=== PATIENT | male | born 1955 | race Two or more races ===

== ENCOUNTER 2017-11-02 13:36 | Emergency (ER) | payer MEDICARE, OTHER ==
[~2017-11-02] VITALS: Ht 177.8 cm; Wt 90.0 kg
[~2017-11-02 13:36] MED LIST: DICY10CA88 PO; LACT10SO PO; METF500T PO; METO5TAB98 PO; PANT-47 PO
[2017-11-02] MEDS ORDERED: morphine 4 MG/ML inj SYRINge IV ONE (14:15)
[2017-11-02] MEDS ORDERED: ondansetron/PF 4mg/2ml inj IV ONE (14:15)
[2017-11-02] MEDS ORDERED: normal saline 1000ML IV soln IVB ONE (14:15)
[2017-11-02 14:35] VITALS: BP 131/76
[2017-11-02 14:39] LABS: BASOPHILS # (AUTO) 0.1 X10'3 (0-0.2); BASOPHILS % (AUTO) 0.6 % (0-1); EOSINOPHILS # (AUTO) 0.2 X10'3 (0-0.9); EOSINOPHILS % (AUTO) 1.5 % (0-6); HEMATOCRIT 33.2 % (42.0-52.0); HEMOGLOBIN 11.6 g/dl (14.0-17.9); LYMPHOCYTES # (AUTO) 1.5 X10'3 (1.1-4.8); LYMPHOCYTES % (AUTO) 14.6 % (21-51); MEAN CORPUSCULAR HEMOGLOBIN 32.8 PG (27.0-31.0); MEAN CORPUSCULAR HGB CONC 34.9 % (33.0-36.5); MEAN CORPUSCULAR VOLUME 94.1 FL (78-98); MEAN PLATELET VOLUME 8.4 FL (7.4-10.4); MONOCYTES # (AUTO) 0.6 X10'3 (0-0.9); NEUTROPHILS # (AUTO) 8.1 X10'3 (1.8-7.7); NEUTROPHILS % (AUTO) 77.3 % (42-75); PLATELET COUNT 248 X10'3 (140-440); RED BLOOD COUNT 3.53 X10'6 (4.70-6.10); RED CELL DISTRIBUTION WIDTH 13.4 % (11.5-14.5); WHITE BLOOD COUNT 10.5 X10'3 (4.5-11.0)
[2017-11-02 14:53] LABS: ALANINE AMINOTRANSFERASE 20 U/L (12-78); ALBUMIN 3.9 G/DL (3.4-5.0); ALKALINE PHOSPHATASE 59 IU/L (46-116); AMYLASE 47 U/L (25-115); ANION GAP 15 (8-16); ASPARTATE AMINO TRANSFERASE 10 U/L (10-37); BILIRUBIN,TOTAL 0.3 MG/DL (0.1-1.0); BLOOD UREA NITROGEN 30 MG/DL (7-18); CALCIUM 9.4 MG/DL (8.5-10.1); CHLORIDE 101 MMOL/L (99-107); CREATININE 1.58 MG/DL (0.60-1.10); GLUCOSE 130 MG/DL (70-104); LIPASE 279 U/L (73-393); POTASSIUM 4.1 MMOL/L (3.5-5.1); SODIUM 139 MMOL/L (135-145); TOTAL CARBON DIOXIDE 22.8 MMOL/L (24-32); TOTAL PROTEIN 7.8 G/DL (6.4-8.2); eGFR 45 ML/MIN
== END 2017-11-02 15:34 | disposition home or self-care (01) ==
LOC: ER 13:37
DX: R10.31 Right lower quadrant pain (principal); R10.32 Left lower quadrant pain; R11.2 Nausea with vomiting, unspecified; I10 Essential (primary) hypertension; E11.9 Type 2 diabetes mellitus without complications; F12.10 Cannabis abuse, uncomplicated; Z79.84 Long term (current) use of oral hypoglycemic drugs
CPT/HCPCS: 36415; 80053; 82150; 83690; 85025; 96361; 96374; 96375; 99285; J2270; J2405; J7030

== ENCOUNTER 2017-11-08 15:55 | Emergency (ER) | payer MEDICARE, OTHER ==
[~2017-11-08] VITALS: Ht 180.3 cm; Wt 97.3 kg
[2017-11-08] MEDS ORDERED: normal saline 1000ML IV soln IVB ONE ×2 (16:10→17:00)
[2017-11-08] MEDS ORDERED: fentaNYL/PF 50MCG/1 ML 2ML syringe IV ONE ×2 (16:10→17:00)
[2017-11-08] MEDS ORDERED: metoclopramide 5 mg/ml inj IV ONE (16:10)
[2017-11-08 16:34] LABS: BASOPHILS % (AUTO) 0.3 % (0-1); EOSINOPHILS # (AUTO) 0.2 X10'3 (0-0.9); EOSINOPHILS % (AUTO) 1.6 % (0-6); HEMATOCRIT 33.6 % (42.0-52.0); HEMOGLOBIN 11.7 g/dl (14.0-17.9); LYMPHOCYTES # (AUTO) 1.7 X10'3 (1.1-4.8); LYMPHOCYTES % (AUTO) 16.1 % (21-51); MEAN CORPUSCULAR HEMOGLOBIN 32.6 PG (27.0-31.0); MEAN CORPUSCULAR HGB CONC 34.8 % (33.0-36.5); MEAN CORPUSCULAR VOLUME 93.8 FL (78-98); MEAN PLATELET VOLUME 8.8 FL (7.4-10.4); MONOCYTES # (AUTO) 0.7 X10'3 (0-0.9); MONOCYTES % (AUTO) 7.1 % (2-12); NEUTROPHILS # (AUTO) 7.8 X10'3 (1.8-7.7); NEUTROPHILS % (AUTO) 74.9 % (42-75); PLATELET COUNT 251 X10'3 (140-440); RED BLOOD COUNT 3.58 X10'6 (4.70-6.10); RED CELL DISTRIBUTION WIDTH 13.3 % (11.5-14.5); WHITE BLOOD COUNT 10.4 X10'3 (4.5-11.0)
[2017-11-08 16:49] LABS: ALANINE AMINOTRANSFERASE 18 U/L (12-78); ALBUMIN 4.4 G/DL (3.4-5.0); ALBUMIN/GLOBULIN RATIO 1.2 (1.1-1.5); ALKALINE PHOSPHATASE 56 IU/L (46-116); ANION GAP 21 (8-16); ASPARTATE AMINO TRANSFERASE 8 U/L (10-37); BILIRUBIN,TOTAL 0.4 MG/DL (0.1-1.0); BLOOD UREA NITROGEN 35 MG/DL (7-18); BUN/CREATININE RATIO 19.3 (5.4-32.0); CALCIUM 9.8 MG/DL (8.5-10.1); CHLORIDE 102 MMOL/L (99-107); CREATININE 1.81 MG/DL (0.60-1.10); GLUCOSE 152 MG/DL (70-104); LIPASE 127 U/L (73-393); POTASSIUM 3.6 MMOL/L (3.5-5.1); SODIUM 142 MMOL/L (135-145); TOTAL CARBON DIOXIDE 19.1 MMOL/L (24-32); eGFR 38 ML/MIN
[2017-11-08 17:57] LABS: CLARITY,URINE Clear (Clear); COLOR,URINE Yellow (Yellow); GLUCOSE, URINE Negative (Neg); KETONES,URINE 15 mg/dl (Neg); LEUKOCYTE ESTERASE ,URINE Negative (Neg); NITRITES, URINE Negative (Neg); OCCULT BLOOD,URINE Negative (Neg); PROTEIN,URINE 30 mg/dl (Neg); UA COLLECTION TYPE URINAL
[2017-11-08 18:05] LABS: BACTERIA,URINE FEW /HPF (Neg); CAL OXALATE CRYSTALS 2+ /HPF (NEGATIVE); MUCUS STRANDS FEW /LPF (Neg); RBC,URINE NONE SEEN /HPF (0-2); SQUAMOUS EPITHELIAL CELL,UR FEW /LPF (FEW); WBC,URINE 0-4 /HPF (0-4)
[2017-11-08 18:37] VITALS: BP 121/58
[2017-11-08] MEDS ORDERED: chlorproMAZINE 25mg/ml inj. IM ONE (18:45)
[2017-11-08] MEDS ORDERED: CIPR-230 PO (19:21)
[2017-11-08] MEDS ORDERED: METR500T4 PO (19:21)
== END 2017-11-08 19:42 | disposition home or self-care (01) ==
LOC: ER 15:56
DX: K31.84 Gastroparesis (principal); K52.9 Noninfective gastroenteritis and colitis, unspecified; I10 Essential (primary) hypertension; E11.9 Type 2 diabetes mellitus without complications; F12.10 Cannabis abuse, uncomplicated; Z79.84 Long term (current) use of oral hypoglycemic drugs; Z79.899 Other long term (current) drug therapy
CPT/HCPCS: 36415; 74018; 74176; 80053; 80320; 81001; 83605; 83690; 85025; 96361; 96374; 96375; 96376; 99285; J2765; J3010; J7030; J3230

== ENCOUNTER 2017-11-21 02:27 | Emergency (ER) | payer MEDICARE, OTHER ==
[~2017-11-21] VITALS: Ht 177.8 cm; Wt 84.2 kg
[~2017-11-21 02:27] MED LIST changes: +CIPR-230 PO; +ONDA4TAB12 PO
[2017-11-21] MEDS ORDERED: ESCI10TA PO (03:00)
[2017-11-21 03:26] LABS: CLARITY,URINE SLIGHTLY CLOUDY (Clear); COLOR,URINE YELLOW (Yellow); GLUCOSE, URINE NEGATIVE (Neg); KETONES,URINE 15 mg/dl (Neg); LEUKOCYTE ESTERASE ,URINE NEGATIVE (Neg); NITRITES, URINE NEGATIVE (Neg); OCCULT BLOOD,URINE TRACE-INTACT (Neg); PROTEIN,URINE NEGATIVE (Neg); UROBILINOGEN,URINE 0.2 E.U/dL (0.2-1.0)
[2017-11-21] MEDS ORDERED: haloperidol lactate 5mg/ml inj IM ONE (03:30)
[2017-11-21] MEDS ORDERED: metoclopramide 5 mg/ml inj IV ONE (03:30)
[2017-11-21] MEDS ORDERED: LORazepam 2 mg/ml vial IV ONE (03:30)
[2017-11-21 03:32] LABS: UA COLLECTION TYPE FOLEY CATH
[2017-11-21 03:35] LABS: BACTERIA,URINE FEW /HPF (Neg); MUCUS STRANDS MANY /LPF (Neg); RBC,URINE 0-2 /HPF (0-2); SQUAMOUS EPITHELIAL CELL,UR FEW /LPF (FEW); TRANSITIONAL EPI CELLS,URINE MANY /HPF; WBC CLUMPS,URINE MANY /HPF (NEGATIVE)
[2017-11-21] MEDS ORDERED: normal saline 1000ml 1,000 ML IV ONE (03:35)
[2017-11-21 03:38] LABS: BASOPHILS % (AUTO) 0.4 % (0-1); EOSINOPHILS # (AUTO) 0.2 X10'3 (0-0.9); EOSINOPHILS % (AUTO) 2.3 % (0-6); HEMATOCRIT 30.8 % (42.0-52.0); HEMOGLOBIN 10.5 g/dl (14.0-17.9); LYMPHOCYTES # (AUTO) 2.3 X10'3 (1.1-4.8); LYMPHOCYTES % (AUTO) 28.1 % (21-51); MEAN CORPUSCULAR HEMOGLOBIN 32.4 PG (27.0-31.0); MEAN CORPUSCULAR HGB CONC 34.1 % (33.0-36.5); MEAN CORPUSCULAR VOLUME 94.9 FL (78-98); MEAN PLATELET VOLUME 8.8 FL (7.4-10.4); MONOCYTES # (AUTO) 0.7 X10'3 (0-0.9); MONOCYTES % (AUTO) 8.1 % (2-12); NEUTROPHILS % (AUTO) 61.1 % (42-75); PLATELET COUNT 222 X10'3 (140-440); RED BLOOD COUNT 3.24 X10'6 (4.70-6.10); RED CELL DISTRIBUTION WIDTH 13.4 % (11.5-14.5); WHITE BLOOD COUNT 8.2 X10'3 (4.5-11.0)
[2017-11-21 03:59] LABS: ALANINE AMINOTRANSFERASE 17 U/L (12-78); ALBUMIN 3.5 G/DL (3.4-5.0); ALBUMIN/GLOBULIN RATIO 1.2 (1.1-1.5); ALKALINE PHOSPHATASE 44 IU/L (46-116); ANION GAP 12 (8-16); ASPARTATE AMINO TRANSFERASE 10 U/L (10-37); BILIRUBIN,TOTAL 0.4 MG/DL (0.1-1.0); BLOOD UREA NITROGEN 26 MG/DL (7-18); BUN/CREATININE RATIO 18.1 (5.4-32.0); CALCIUM 9.1 MG/DL (8.5-10.1); CHLORIDE 103 MMOL/L (99-107); CREATININE 1.44 MG/DL (0.60-1.10); GLUCOSE 111 MG/DL (70-104); POTASSIUM 3.6 MMOL/L (3.5-5.1); SODIUM 139 MMOL/L (135-145); TOTAL CARBON DIOXIDE 23.9 MMOL/L (24-32); TOTAL PROTEIN 6.5 G/DL (6.4-8.2); eGFR 50 ML/MIN
[2017-11-21 04:18] LABS: INR 1.2 INR; PROTHROMBIN TIME 12.6 SECONDS (9.0-12.0)
[2017-11-21 04:51] LABS: URINE AMPHETAMINE SCREEN NEGATIVE (Neg); URINE BARBITUATE SCREEN NEGATIVE (Neg); URINE BENZODIAZEPINES SCREEN NEGATIVE (Neg); URINE CANNABINOID SCREEN POSITIVE (Neg); URINE COCAINE SCREEN NEGATIVE (Neg); URINE METHADONE SCREEN NEGATIVE (Neg); URINE OPIATE SCREEN NEGATIVE (Neg); URINE PHENCYCLIDINE SCREEN NEGATIVE (Neg)
[2017-11-21] MEDS ORDERED: CIPR-259 PO (05:19)
[2017-11-21 05:22] VITALS: BP 126/66
[2017-11-24] MEDS ORDERED: METO10TA3 (14:46)
== END 2017-11-21 05:31 | disposition home or self-care (01) ==
LOC: ER 02:28
DX: R10.30 Lower abdominal pain, unspecified (principal); N39.0 Urinary tract infection, site not specified; F12.288 Cannabis dependence with other cannabis-induced disorder; I10 Essential (primary) hypertension; E11.9 Type 2 diabetes mellitus without complications; Z79.84 Long term (current) use of oral hypoglycemic drugs; Z79.899 Other long term (current) drug therapy
CPT/HCPCS: 36415; 80053; 80305; 81001; 85025; 85610; 87088; 96361; 96372; 96374; 96375; 99284; A4315; J1630; J2060; J2765; J7030

== ENCOUNTER 2017-11-23 10:08 | Inpatient (IN) | payer MEDICARE, OTHER ==
[~2017-11-23] VITALS: Ht 180.3 cm; Wt 86.3 kg
[~2017-11-23 10:08] MED LIST changes: -CIPR-230 PO; +CIPR-259 PO; +ESCI10TA PO; -PANT-47 PO
[2017-11-23] MEDS ORDERED: LORazepam 2 mg/ml vial IV ONE ×2 (11:35→12:50)
[2017-11-23] MEDS ORDERED: haloperidol lactate 5mg/ml inj IM ONE (11:35)
[2017-11-23] MEDS ORDERED: metoclopramide 5 mg/ml inj IV ONE (11:35)
[2017-11-23 12:00] LABS: BASOPHILS # (AUTO) 0.1 X10'3 (0-0.2); BASOPHILS % (AUTO) 0.5 % (0-1); EOSINOPHILS # (AUTO) 0.2 X10'3 (0-0.9); EOSINOPHILS % (AUTO) 1.3 % (0-6); HEMATOCRIT 33.4 % (42.0-52.0); HEMOGLOBIN 11.6 g/dl (14.0-17.9); LYMPHOCYTES # (AUTO) 0.9 X10'3 (1.1-4.8); LYMPHOCYTES % (AUTO) 6.9 % (21-51); MEAN CORPUSCULAR HEMOGLOBIN 32.8 PG (27.0-31.0); MEAN CORPUSCULAR HGB CONC 34.7 % (33.0-36.5); MEAN CORPUSCULAR VOLUME 94.5 FL (78-98); MEAN PLATELET VOLUME 8.8 FL (7.4-10.4); MONOCYTES # (AUTO) 0.6 X10'3 (0-0.9); MONOCYTES % (AUTO) 4.8 % (2-12); NEUTROPHILS # (AUTO) 10.7 X10'3 (1.8-7.7); NEUTROPHILS % (AUTO) 86.5 % (42-75); PLATELET COUNT 246 X10'3 (140-440); RED BLOOD COUNT 3.54 X10'6 (4.70-6.10); RED CELL DISTRIBUTION WIDTH 13.3 % (11.5-14.5); WHITE BLOOD COUNT 12.4 X10'3 (4.5-11.0)
[2017-11-23 12:10] LABS: INR 1.2 INR; PROTHROMBIN TIME 12.3 SECONDS (9.0-12.0)
[2017-11-23 12:15] LABS: ALANINE AMINOTRANSFERASE 16 U/L (12-78); ALBUMIN 4.3 G/DL (3.4-5.0); ALBUMIN/GLOBULIN RATIO 1.3 (1.1-1.5); ALKALINE PHOSPHATASE 50 IU/L (46-116); ANION GAP 21 (8-16); ASPARTATE AMINO TRANSFERASE 8 U/L (10-37); BILIRUBIN,TOTAL 0.5 MG/DL (0.1-1.0); BLOOD UREA NITROGEN 27 MG/DL (7-18); BUN/CREATININE RATIO 15.4 (5.4-32.0); CALCIUM 10.4 MG/DL (8.5-10.1); CHLORIDE 101 MMOL/L (99-107); CREATININE 1.75 MG/DL (0.60-1.10); GLUCOSE 167 MG/DL (70-104); POTASSIUM 3.9 MMOL/L (3.5-5.1); SODIUM 138 MMOL/L (135-145); TOTAL CARBON DIOXIDE 15.7 MMOL/L (24-32); TOTAL PROTEIN 7.7 G/DL (6.4-8.2); eGFR 40 ML/MIN
[2017-11-23] MEDS ORDERED: normal saline 1000ML IV soln IVB ONE (12:50)
[2017-11-23] MEDS ORDERED: morphine 4 MG/ML inj SYRINge IV ONE (13:05)
[2017-11-23 13:17] LABS: LIPASE 56 U/L (73-393)
[2017-11-23] MEDS ORDERED: dextrose 50%-water 50ml dispensing syringe IV PRN ×2 (14:35)
[2017-11-23] MEDS ORDERED: magnesium 2GM in 50ml NS 50 ML IV PRN (14:35)
[2017-11-23] MEDS ORDERED: bisacodyl 10mg suppository rectal RC PRN (14:35)
[2017-11-23] MEDS ORDERED: potassium Cl 40MEQ/NS 500ml 500 ML IV PRN ×2 (14:35)
[2017-11-23] MEDS ORDERED: glucagon, human recombinant 1mg kit SUBCUT PRN (14:35)
[2017-11-23] MEDS ORDERED: MESSAGE TO PHARMACY PO ONE (14:35)
[2017-11-23] MEDS ORDERED: magnesium 4gm in 100ml NS 100 ML IV PRN (14:35)
[2017-11-23] MEDS ORDERED: acetaminophen 650mg rectal suppository RC PRN (14:35)
[2017-11-23] MEDS ORDERED: insulin Lispro (HumaLOG) vial - multi-dose SQ SCH (14:35)
[2017-11-23] MEDS ORDERED: dextrose ORAL solution 15 GM/59 ML bottle PO PRN ×2 (14:35)
[2017-11-23] MEDS ORDERED: morphine 4 MG/ML inj SYRINge IV PRN (14:35)
[2017-11-23 15:30] LABS: ALANINE AMINOTRANSFERASE 15 U/L (12-78); ALBUMIN 3.3 G/DL (3.4-5.0); ALBUMIN/GLOBULIN RATIO 1.2 (1.1-1.5); ALKALINE PHOSPHATASE 38 IU/L (46-116); ANION GAP 12 (8-16); ASPARTATE AMINO TRANSFERASE 15 U/L (10-37); BILIRUBIN,TOTAL 0.3 MG/DL (0.1-1.0); BLOOD UREA NITROGEN 25 MG/DL (7-18); BUN/CREATININE RATIO 17.6 (5.4-32.0); CALCIUM 8.4 MG/DL (8.5-10.1); CHLORIDE 107 MMOL/L (99-107); CREATININE 1.42 MG/DL (0.60-1.10); GLUCOSE 125 MG/DL (70-104); POTASSIUM 3.8 MMOL/L (3.5-5.1); SODIUM 142 MMOL/L (135-145); TOTAL CARBON DIOXIDE 22.7 MMOL/L (24-32); eGFR 51 ML/MIN
[2017-11-23 15:50] LABS: TROPONIN I 0.08 NG/ML (0.0-0.05)
[2017-11-23] MEDS ORDERED: hydrALAZINE 20mg/ml inj. IV PRN (15:50)
[2017-11-23] MEDS: morphine 4 MG/ML inj SYRINge IV PRN ×3 (16:28→23:10)
[2017-11-23] MEDS: heparin, porcine 5000 units/ml vial SQ SCH (16:49)
[2017-11-23 17:52] VITALS: BP 141/61
[2017-11-23 18:27] LABS: HEMOGLOBIN A1C 7.2 % (4.5-6.2)
[2017-11-23 19:00] VITALS: BP 106/65
[2017-11-23] MEDS: normal saline 1000ml 1,000 ML IV SCH ×2 (20:14→23:30)
[2017-11-23] MEDS: insulin glargine (Lantus) pen - multi-dose SQ SCH (21:00)
[2017-11-23] MEDS: metoclopramide 5 mg/ml inj IV PRN (21:58)
[2017-11-23] MEDS ORDERED: MORPHINE 2MG in 2ml NS syringe IV PRN (22:45)
[2017-11-23 23:00] VITALS: BP 138/64
[2017-11-23] MEDS: ondansetron/PF 4mg/2ml inj IV PRN (23:10)
[2017-11-24] MEDS: morphine 4 MG/ML inj SYRINge IV PRN ×5 (02:10→23:11)
[2017-11-24 02:15] LABS: CLARITY,URINE CLEAR (Clear); COLOR,URINE YELLOW (Yellow); GLUCOSE, URINE NEGATIVE (Neg); KETONES,URINE 40 mg/dl (Neg); LEUKOCYTE ESTERASE ,URINE NEGATIVE (Neg); NITRITES, URINE NEGATIVE (Neg); OCCULT BLOOD,URINE TRACE-INTACT (Neg); PROTEIN,URINE TRACE mg/dl (Neg); UROBILINOGEN,URINE 0.2 E.U/dL (0.2-1.0)
[2017-11-24 02:16] LABS: UA COLLECTION TYPE CLN CATCH MIDSTREAM
[2017-11-24 02:23] LABS: BACTERIA,URINE NONE SEEN /HPF (Neg); MUCUS STRANDS MANY /LPF (Neg); RBC,URINE 0-2 /HPF (0-2); SQUAMOUS EPITHELIAL CELL,UR FEW /LPF (FEW); WBC,URINE 0-4 /HPF (0-4)
[2017-11-24 03:00] VITALS: BP 117/54
[2017-11-24] MEDS: normal saline 1000ml 1,000 ML IV SCH ×4 (04:30→19:30)
[2017-11-24 05:37] LABS: BASOPHILS % (AUTO) 0.3 % (0-1); EOSINOPHILS # (AUTO) 0.1 X10'3 (0-0.9); EOSINOPHILS % (AUTO) 1.9 % (0-6); HEMATOCRIT 29.1 % (42.0-52.0); HEMOGLOBIN 9.9 g/dl (14.0-17.9); LYMPHOCYTES # (AUTO) 1.8 X10'3 (1.1-4.8); MEAN CORPUSCULAR HEMOGLOBIN 32.8 PG (27.0-31.0); MEAN CORPUSCULAR VOLUME 96.3 FL (78-98); MEAN PLATELET VOLUME 8.8 FL (7.4-10.4); MONOCYTES # (AUTO) 0.7 X10'3 (0-0.9); MONOCYTES % (AUTO) 8.5 % (2-12); NEUTROPHILS # (AUTO) 5.4 X10'3 (1.8-7.7); NEUTROPHILS % (AUTO) 67.3 % (42-75); PLATELET COUNT 206 X10'3 (140-440); RED BLOOD COUNT 3.02 X10'6 (4.70-6.10); RED CELL DISTRIBUTION WIDTH 14.1 % (11.5-14.5)
[2017-11-24 06:07] LABS: ALANINE AMINOTRANSFERASE 13 U/L (12-78); ALBUMIN 3.2 G/DL (3.4-5.0); ALBUMIN/GLOBULIN RATIO 1.1 (1.1-1.5); ALKALINE PHOSPHATASE 39 IU/L (46-116); ANION GAP 12 (8-16); ASPARTATE AMINO TRANSFERASE 8 U/L (10-37); BILIRUBIN,TOTAL 0.3 MG/DL (0.1-1.0); BLOOD UREA NITROGEN 18 MG/DL (7-18); BUN/CREATININE RATIO 16.8 (5.4-32.0); CALCIUM 8.2 MG/DL (8.5-10.1); CHLORIDE 108 MMOL/L (99-107); CHOLESTEROL 152 MG/DL (0-200); CREATININE 1.07 MG/DL (0.60-1.10); GLUCOSE 91 MG/DL (70-104); HDL CHOLESTEROL 50 MG/DL (35-60); LDL CHOLESTEROL 80 MG/DL (50-100); MAGNESIUM 2.1 MG/DL (1.5-2.4); POTASSIUM 3.9 MMOL/L (3.5-5.1); SODIUM 142 MMOL/L (135-145); TOTAL CARBON DIOXIDE 22.2 MMOL/L (24-32); TRIGLYCERIDES 65 MG/DL (20-135); eGFR 70 ML/MIN
[2017-11-24 07:00] VITALS: BP 137/65
[2017-11-24] MEDS: ondansetron/PF 4mg/2ml inj IV PRN ×3 (07:09→20:04)
[2017-11-24] MEDS: heparin, porcine 5000 units/ml vial SQ SCH ×3 (07:11→16:41)
[2017-11-24] MEDS: K and/or MAG REPLACEMENT MC SCH (08:00)
[2017-11-24] MEDS: metoclopramide 5 mg/ml inj IV PRN (10:59)
[2017-11-24 11:00] VITALS: BP 120/75
[2017-11-24] MEDS ORDERED: METO10TA3 PO (14:46)
[2017-11-24 15:00] VITALS: BP 151/64
[2017-11-24 19:00] VITALS: BP 149/64
[2017-11-24] MEDS: insulin glargine (Lantus) pen - multi-dose SQ SCH (21:00)
[2017-11-24 23:00] VITALS: BP 144/62
[2017-11-25] MEDS ORDERED: acetaminophen 325mg tablet PO PRN (00:05)
[2017-11-25] MEDS: normal saline 1000ml 1,000 ML IV SCH ×5 (00:51→20:30)
[2017-11-25] MEDS: morphine 4 MG/ML inj SYRINge IV PRN ×6 (02:34→18:44)
[2017-11-25 03:00] VITALS: BP 147/73
[2017-11-25 05:14] LABS: BASOPHILS % (AUTO) 0.6 % (0-1); EOSINOPHILS # (AUTO) 0.2 X10'3 (0-0.9); EOSINOPHILS % (AUTO) 2.9 % (0-6); HEMOGLOBIN 9.1 g/dl (14.0-17.9); LYMPHOCYTES # (AUTO) 1.9 X10'3 (1.1-4.8); LYMPHOCYTES % (AUTO) 31.7 % (21-51); MEAN CORPUSCULAR HEMOGLOBIN 32.7 PG (27.0-31.0); MEAN CORPUSCULAR HGB CONC 34.9 % (33.0-36.5); MEAN CORPUSCULAR VOLUME 93.8 FL (78-98); MEAN PLATELET VOLUME 8.8 FL (7.4-10.4); MONOCYTES # (AUTO) 0.5 X10'3 (0-0.9); MONOCYTES % (AUTO) 7.8 % (2-12); NEUTROPHILS # (AUTO) 3.4 X10'3 (1.8-7.7); PLATELET COUNT 194 X10'3 (140-440); RED BLOOD COUNT 2.77 X10'6 (4.70-6.10); RED CELL DISTRIBUTION WIDTH 13.5 % (11.5-14.5)
[2017-11-25 05:23] LABS: ALANINE AMINOTRANSFERASE 15 U/L (12-78); ALBUMIN 2.7 G/DL (3.4-5.0); ALKALINE PHOSPHATASE 32 IU/L (46-116); ANION GAP 8 (8-16); ASPARTATE AMINO TRANSFERASE 12 U/L (10-37); BILIRUBIN,TOTAL 0.2 MG/DL (0.1-1.0); BLOOD UREA NITROGEN 11 MG/DL (7-18); BUN/CREATININE RATIO 12.4 (5.4-32.0); CALCIUM 7.5 MG/DL (8.5-10.1); CHLORIDE 110 MMOL/L (99-107); CREATININE 0.89 MG/DL (0.60-1.10); GLUCOSE 77 MG/DL (70-104); MAGNESIUM 1.7 MG/DL (1.5-2.4); POTASSIUM 3.7 MMOL/L (3.5-5.1); SODIUM 141 MMOL/L (135-145); TOTAL CARBON DIOXIDE 23.4 MMOL/L (24-32); TOTAL PROTEIN 5.3 G/DL (6.4-8.2); eGFR 87 ML/MIN
[2017-11-25 06:00] VITALS: BP 137/59
[2017-11-25] MEDS: metoclopramide 5 mg/ml inj IV PRN ×2 (07:25→20:51)
[2017-11-25] MEDS: heparin, porcine 5000 units/ml vial SQ SCH ×3 (07:25→15:32)
[2017-11-25] MEDS: K and/or MAG REPLACEMENT MC SCH (07:34)
[2017-11-25 11:00] VITALS: BP 115/64
[2017-11-25] MEDS ORDERED: potassium Cl 20 mEq SR tablet PO STA (11:07)
[2017-11-25] MEDS ORDERED: magnesium 2GM in 50ml NS 50 ML IV ONE (11:10)
[2017-11-25 15:00] VITALS: BP 164/69
[2017-11-25] MEDS: ondansetron/PF 4mg/2ml inj IV PRN (16:08)
[2017-11-25 19:00] VITALS: BP 146/60
[2017-11-25] MEDS: pantoprazole 40 MG vial IV SCH (20:28)
[2017-11-25] MEDS: insulin glargine (Lantus) pen - multi-dose SQ SCH (21:00)
[2017-11-25 23:00] VITALS: BP 136/71
[2017-11-26] MEDS: ondansetron/PF 4mg/2ml inj IV PRN ×2 (00:56→16:58)
[2017-11-26] MEDS: morphine 4 MG/ML inj SYRINge IV PRN ×4 (00:56→21:59)
[2017-11-26] MEDS: normal saline 1000ml 1,000 ML IV SCH ×5 (02:30→21:59)
[2017-11-26 03:00] VITALS: BP 154/61
[2017-11-26 05:46] LABS: BASOPHILS # (AUTO) 0.1 X10'3 (0-0.2); BASOPHILS % (AUTO) 0.9 % (0-1); EOSINOPHILS # (AUTO) 0.2 X10'3 (0-0.9); EOSINOPHILS % (AUTO) 2.7 % (0-6); HEMATOCRIT 29.1 % (42.0-52.0); HEMOGLOBIN 9.9 g/dl (14.0-17.9); LYMPHOCYTES # (AUTO) 1.7 X10'3 (1.1-4.8); LYMPHOCYTES % (AUTO) 26.1 % (21-51); MEAN CORPUSCULAR HEMOGLOBIN 32.6 PG (27.0-31.0); MEAN CORPUSCULAR HGB CONC 34.2 % (33.0-36.5); MEAN CORPUSCULAR VOLUME 95.1 FL (78-98); MEAN PLATELET VOLUME 8.4 FL (7.4-10.4); MONOCYTES # (AUTO) 0.5 X10'3 (0-0.9); MONOCYTES % (AUTO) 8.2 % (2-12); NEUTROPHILS % (AUTO) 62.1 % (42-75); PLATELET COUNT 195 X10'3 (140-440); RED BLOOD COUNT 3.06 X10'6 (4.70-6.10); RED CELL DISTRIBUTION WIDTH 13.1 % (11.5-14.5); WHITE BLOOD COUNT 6.5 X10'3 (4.5-11.0)
[2017-11-26 06:07] LABS: ALANINE AMINOTRANSFERASE 13 U/L (12-78); ALBUMIN 2.9 G/DL (3.4-5.0); ALBUMIN/GLOBULIN RATIO 1.2 (1.1-1.5); ALKALINE PHOSPHATASE 33 IU/L (46-116); ANION GAP 10 (8-16); ASPARTATE AMINO TRANSFERASE 10 U/L (10-37); BILIRUBIN,TOTAL 0.3 MG/DL (0.1-1.0); BLOOD UREA NITROGEN 6 MG/DL (7-18); CALCIUM 7.9 MG/DL (8.5-10.1); CHLORIDE 108 MMOL/L (99-107); CREATININE 0.86 MG/DL (0.60-1.10); GLUCOSE 78 MG/DL (70-104); MAGNESIUM 2.1 MG/DL (1.5-2.4); POTASSIUM 3.7 MMOL/L (3.5-5.1); SODIUM 141 MMOL/L (135-145); TOTAL CARBON DIOXIDE 22.7 MMOL/L (24-32); TOTAL PROTEIN 5.4 G/DL (6.4-8.2); eGFR > 90 ML/MIN
[2017-11-26 07:00] VITALS: BP 169/78
[2017-11-26] MEDS: K and/or MAG REPLACEMENT MC SCH (08:00)
[2017-11-26] MEDS: pantoprazole 40 MG vial IV SCH ×2 (08:00→19:48)
[2017-11-26] MEDS: heparin, porcine 5000 units/ml vial SQ SCH ×3 (08:00→16:56)
[2017-11-26] MEDS ORDERED: potassium Cl 20 mEq SR tablet PO STA (09:00)
[2017-11-26 11:00] VITALS: BP 156/59
[2017-11-26] MEDS: metoclopramide 5 mg/ml inj IV PRN (12:22)
[2017-11-26 19:00] VITALS: BP 151/68
[2017-11-26] MEDS: insulin glargine (Lantus) pen - multi-dose SQ SCH (21:00)
[2017-11-26 22:00] VITALS: BP 121/70
[2017-11-27] MEDS: heparin, porcine 5000 units/ml vial SQ SCH ×2 (00:13→06:54)
[2017-11-27 02:00] VITALS: BP 153/66
[2017-11-27] MEDS: normal saline 1000ml 1,000 ML IV SCH ×2 (02:56→07:30)
[2017-11-27] MEDS: morphine 4 MG/ML inj SYRINge IV PRN ×2 (02:59→06:54)
[2017-11-27 05:24] LABS: BASOPHILS % (AUTO) 0.8 % (0-1); EOSINOPHILS # (AUTO) 0.2 X10'3 (0-0.9); EOSINOPHILS % (AUTO) 4.2 % (0-6); HEMATOCRIT 27.2 % (42.0-52.0); HEMOGLOBIN 9.4 g/dl (14.0-17.9); LYMPHOCYTES # (AUTO) 1.6 X10'3 (1.1-4.8); MEAN CORPUSCULAR HEMOGLOBIN 32.5 PG (27.0-31.0); MEAN CORPUSCULAR HGB CONC 34.4 % (33.0-36.5); MEAN CORPUSCULAR VOLUME 94.5 FL (78-98); MEAN PLATELET VOLUME 8.6 FL (7.4-10.4); MONOCYTES # (AUTO) 0.5 X10'3 (0-0.9); MONOCYTES % (AUTO) 9.8 % (2-12); NEUTROPHILS # (AUTO) 3.2 X10'3 (1.8-7.7); NEUTROPHILS % (AUTO) 57.2 % (42-75); PLATELET COUNT 188 X10'3 (140-440); RED BLOOD COUNT 2.87 X10'6 (4.70-6.10); RED CELL DISTRIBUTION WIDTH 13.5 % (11.5-14.5); WHITE BLOOD COUNT 5.6 X10'3 (4.5-11.0)
[2017-11-27 06:00] VITALS: BP 145/64
[2017-11-27 06:17] LABS: ALANINE AMINOTRANSFERASE 14 U/L (12-78); ALBUMIN 2.8 G/DL (3.4-5.0); ALBUMIN/GLOBULIN RATIO 1.1 (1.1-1.5); ALKALINE PHOSPHATASE 33 IU/L (46-116); ANION GAP 9 (8-16); ASPARTATE AMINO TRANSFERASE 9 U/L (10-37); BILIRUBIN,TOTAL 0.4 MG/DL (0.1-1.0); BLOOD UREA NITROGEN 6 MG/DL (7-18); BUN/CREATININE RATIO 6.9 (5.4-32.0); CHLORIDE 110 MMOL/L (99-107); CREATININE 0.87 MG/DL (0.60-1.10); GLUCOSE 88 MG/DL (70-104); MAGNESIUM 1.7 MG/DL (1.5-2.4); POTASSIUM 3.3 MMOL/L (3.5-5.1); SODIUM 143 MMOL/L (135-145); TOTAL CARBON DIOXIDE 23.6 MMOL/L (24-32); TOTAL PROTEIN 5.4 G/DL (6.4-8.2); eGFR 90 ML/MIN
[2017-11-27] MEDS: pantoprazole 40 MG vial IV SCH (06:53)
[2017-11-27 07:10] VITALS: BP 145/64
[2017-11-27] MEDS ORDERED: morphine 4 MG/ML inj SYRINge IV PRN (07:30)
[2017-11-27] MEDS: K and/or MAG REPLACEMENT MC SCH (08:28)
[2017-11-27] MEDS ORDERED: potassium Cl 20 mEq SR tablet PO PRN ×2 (08:55)
[2017-11-27] MEDS ORDERED: potassium Cl 40MEQ/NS 500ml 500 ML IV PRN ×2 (08:55)
[2017-11-27 11:00] VITALS: BP 159/61
[2017-11-27] MEDS ORDERED: HYDR-3972 PO ×2 (11:07→11:08)
[2017-12-11] MEDS ORDERED: LISI10TA4 PO (16:20)
[2017-12-11] MEDS ORDERED: NITR100C11 PO (16:20)
[2017-12-11] MEDS ORDERED: PANT40TA4 PO (16:20)
== END 2017-11-27 12:25 | disposition home or self-care (01) | DRG 682 ==
LOC: ER 10:09 → ED HOLD 14:35 → EDBEDREQ 16:52 → PCU 3S 17:49 → CMPBEDREQ 11-24 19:51
PROVIDERS: ADMIT Family Medicine; ATTEND Family Medicine
PROC: CD2 Nuclear Medicine, Gastrointestinal System, Tomographic (Tomo) Nuclear Medicine Imaging (ICD-10-PCS; principal; 2017-11-26)
DX: N17.9 Acute kidney failure, unspecified (principal); R65.11 Systemic inflammatory response syndrome (SIRS) of non-infectious origin with acute organ dysfunction; E11.22 Type 2 diabetes mellitus with diabetic chronic kidney disease; K31.84 Gastroparesis; E87.2 Acidosis; E11.43 Type 2 diabetes mellitus with diabetic autonomic (poly)neuropathy; I07.1 Rheumatic tricuspid insufficiency; N18.3 Chronic kidney disease, stage 3 (moderate); I49.49 Other premature depolarization; I49.9 Cardiac arrhythmia, unspecified; F41.9 Anxiety disorder, unspecified; F32.9 Major depressive disorder, single episode, unspecified; D72.829 Elevated white blood cell count, unspecified; D64.9 Anemia, unspecified; F12.988 Cannabis use, unspecified with other cannabis-induced disorder; R00.8 Other abnormalities of heart beat; I12.9 Hypertensive chronic kidney disease with stage 1 through stage 4 chronic kidney disease, or unspecified chronic kidney disease; Z79.899 Other long term (current) drug therapy; Z80.42 Family history of malignant neoplasm of prostate; Z83.3 Family history of diabetes mellitus
CPT/HCPCS: 36415; 78264; 80053; 80061; 81001; 82948; 83036; 83605; 83690; 83735; 84484; 85025; 85610; 87040; 87070; 93005; 93306; 96374; 96375; 96376; 99285; A6212; A6449; A9270; A9541; C9113; J1630; J1644; J1815; J2060; J2270; J2274; J2405; J2765; J3475; J7030

== ENCOUNTER 2018-06-24 12:40 | Emergency (ER) | payer MEDICARE, OTHER ==
[~2018-06-24] VITALS: Ht 157.5 cm; Wt 90.9 kg
[~2018-06-24 12:40] MED LIST changes: +AMLO5TAB16 PO; +CHOL200052 PO; -CIPR-259 PO; -ESCI10TA PO; -METF500T PO; +METO10TA3 PO; -METO5TAB98 PO; +MIRT15TA8 PO; +NORT10CA2 PO; -ONDA4TAB12 PO; +PANT40TA4 PO
[2018-06-24] MEDS ORDERED: morphine 4 MG/ML inj SYRINge IV ONE (14:15)
[2018-06-24] MEDS ORDERED: normal saline 1000ML IV soln IV ONE (14:15)
[2018-06-24] MEDS ORDERED: LORazepam 2 mg/ml vial IV ONE (14:15)
[2018-06-24] MEDS ORDERED: ondansetron/PF 4mg/2ml inj IV ONE (14:15)
[2018-06-24 14:27] LABS: BASOPHILS % (AUTO) 0.4 % (0-1); EOSINOPHILS % (AUTO) 0.7 % (0-6); HEMATOCRIT 37.1 % (42.0-52.0); HEMOGLOBIN 12.5 g/dl (14.0-17.9); LYMPHOCYTES # (AUTO) 1.5 X10'3 (1.1-4.8); LYMPHOCYTES % (AUTO) 27.6 % (21-51); MEAN CORPUSCULAR HEMOGLOBIN 32.1 PG (27.0-31.0); MEAN CORPUSCULAR HGB CONC 33.8 % (33.0-36.5); MEAN PLATELET VOLUME 9.4 FL (7.4-10.4); MONOCYTES # (AUTO) 0.6 X10'3 (0-0.9); MONOCYTES % (AUTO) 10.2 % (2-12); NEUTROPHILS # (AUTO) 3.3 X10'3 (1.8-7.7); NEUTROPHILS % (AUTO) 61.1 % (42-75); PLATELET COUNT 209 X10'3 (140-440); RED CELL DISTRIBUTION WIDTH 13.5 % (11.5-14.5); WHITE BLOOD COUNT 5.5 X10'3 (4.5-11.0)
[2018-06-24] MEDS ORDERED: haloperidol lactate 5mg/ml inj IM ONE (14:40)
[2018-06-24 14:43] LABS: ALANINE AMINOTRANSFERASE 19 U/L (12-78); ALKALINE PHOSPHATASE 82 IU/L (46-116); ANION GAP 13 (8-16); ASPARTATE AMINO TRANSFERASE 10 U/L (10-37); BILIRUBIN,TOTAL 0.3 MG/DL (0.1-1.0); BLOOD UREA NITROGEN 17 MG/DL (7-18); BUN/CREATININE RATIO 10.6 (5.4-32.0); CALCIUM 9.8 MG/DL (8.5-10.1); CHLORIDE 102 MMOL/L (99-107); CREATININE 1.61 MG/DL (0.60-1.10); GLUCOSE 136 MG/DL (70-104); SODIUM 138 MMOL/L (135-145); TOTAL CARBON DIOXIDE 23.1 MMOL/L (24-32); eGFR 44 ML/MIN
[2018-06-24 14:45] LABS: INR 1.1 INR; PROTHROMBIN TIME 11.4 SECONDS (9.0-12.0)
[2018-06-24 14:55] LABS: LIPASE 234 U/L (73-393)
[2018-06-24 15:14] VITALS: BP 143/74
== END 2018-06-24 15:19 | disposition home or self-care (01) ==
LOC: ER 12:40
DX: E11.43 Type 2 diabetes mellitus with diabetic autonomic (poly)neuropathy (principal); K31.84 Gastroparesis; E86.0 Dehydration; N28.9 Disorder of kidney and ureter, unspecified; R11.2 Nausea with vomiting, unspecified; R19.7 Diarrhea, unspecified; R10.30 Lower abdominal pain, unspecified; R10.84 Generalized abdominal pain; I10 Essential (primary) hypertension; F12.90 Cannabis use, unspecified, uncomplicated; Z98.890 Other specified postprocedural states; Z79.899 Other long term (current) drug therapy
CPT/HCPCS: 36415; 80053; 83690; 85025; 85610; 93005; 96372; 96374; 96375; 99284; J1630; J2060; J2270; J2405

== ENCOUNTER 2018-10-26 16:51 | Emergency (ER) | payer MEDICARE ==
[~2018-10-26] VITALS: Ht 177.8 cm; Wt 81.8 kg
[2018-10-26 17:32] LABS: BASOPHILS # (AUTO) 0.1 X10'3 (0-0.2); EOSINOPHILS # (AUTO) 0.2 X10'3 (0-0.9); EOSINOPHILS % (AUTO) 2.1 % (0-6); HEMATOCRIT 39.1 % (42.0-52.0); HEMOGLOBIN 13.3 g/dl (14.0-17.9); LYMPHOCYTES # (AUTO) 2.1 X10'3 (1.1-4.8); LYMPHOCYTES % (AUTO) 25.2 % (21-51); MEAN CORPUSCULAR HEMOGLOBIN 32.2 PG (27.0-31.0); MEAN CORPUSCULAR VOLUME 94.6 FL (78-98); MEAN PLATELET VOLUME 8.3 FL (7.4-10.4); MONOCYTES # (AUTO) 0.8 X10'3 (0-0.9); MONOCYTES % (AUTO) 9.7 % (2-12); NEUTROPHILS # (AUTO) 5.1 X10'3 (1.8-7.7); PLATELET COUNT 270 X10'3 (140-440); RED BLOOD COUNT 4.13 X10'6 (4.70-6.10); WHITE BLOOD COUNT 8.3 X10'3 (4.5-11.0)
[2018-10-26 17:43] LABS: ALANINE AMINOTRANSFERASE 14 U/L (12-78); ALBUMIN 3.7 G/DL (3.4-5.0); ALKALINE PHOSPHATASE 61 IU/L (46-116); ANION GAP 12 (8-16); ASPARTATE AMINO TRANSFERASE 10 U/L (10-37); BILIRUBIN,TOTAL 0.2 MG/DL (0.1-1.0); BLOOD UREA NITROGEN 27 MG/DL (7-18); BUN/CREATININE RATIO 19.4 (5.4-32.0); CHLORIDE 105 MMOL/L (99-107); CREATININE 1.39 MG/DL (0.60-1.10); GLUCOSE 113 MG/DL (70-104); LIPASE 366 U/L (73-393); SODIUM 139 MMOL/L (135-145); TOTAL CARBON DIOXIDE 22.3 MMOL/L (24-32); TOTAL PROTEIN 7.4 G/DL (6.4-8.2); eGFR 52 ML/MIN
[2018-10-26] MEDS ORDERED: normal saline 1000ml 1,000 ML IV ONE ×2 (18:00)
[2018-10-26] MEDS ORDERED: metoclopramide 5 mg/ml inj IV ONE (18:00)
[2018-10-26 18:05] LABS: CLARITY,URINE CLEAR (Clear); COLOR,URINE YELLOW (Yellow); GLUCOSE, URINE NEGATIVE (Neg); KETONES,URINE NEGATIVE (Neg); LEUKOCYTE ESTERASE ,URINE NEGATIVE (Neg); NITRITES, URINE NEGATIVE (Neg); OCCULT BLOOD,URINE NEGATIVE (Neg); PH,URINE 6.5 (4.8-8.0); PROTEIN,URINE TRACE mg/dl (Neg); UROBILINOGEN,URINE 0.2 E.U/dL (0.2-1.0)
[2018-10-26] MEDS ORDERED: fentaNYL/PF 50MCG/1 ML 2ML syringe IV ONE (18:10)
[2018-10-26] MEDS ORDERED: ketorolac trometh. 30mg/ml inj. IV ONE (18:10)
[2018-10-26] MEDS ORDERED: acetaminophen 325mg tablet PO ONE (18:10)
[2018-10-26 18:19] LABS: UA COLLECTION TYPE CLN CATCH MIDSTREAM
[2018-10-26 18:25] LABS: BACTERIA,URINE NONE SEEN /HPF (Neg); HYALINE CASTS 0-3 /LPF (NEGATIVE); MUCUS STRANDS MANY /LPF (Neg); RBC,URINE NONE SEEN /HPF (0-2); SQUAMOUS EPITHELIAL CELL,UR FEW /LPF (FEW); WBC,URINE 0-4 /HPF (0-4)
[2018-10-26] MEDS ORDERED: LORazepam 2 mg/ml vial IV ONE (18:40)
[2018-10-26] MEDS ORDERED: METO-292 PO (19:04)
[2018-10-26 19:59] VITALS: BP 121/61
== END 2018-10-26 20:04 | disposition home or self-care (01) ==
LOC: ER 16:51
DX: R10.31 Right lower quadrant pain (principal); I10 Essential (primary) hypertension; E11.9 Type 2 diabetes mellitus without complications; F12.90 Cannabis use, unspecified, uncomplicated
CPT/HCPCS: 36415; 80053; 81001; 83690; 85025; 96374; 96375; 99283; J1885; J2060; J2765; J3010; J7030

== ENCOUNTER 2018-10-30 16:47 | Inpatient (IN) | payer MEDICARE, OTHER | END 2018-11-02 19:53 | disposition home or self-care (01) | LOC: ER 16:47 → ED HOLD 21:47 → SUR 3N 23:20 | DX: K29.70 Gastritis, unspecified, without bleeding (principal); N17.0 Acute kidney failure with tubular necrosis; E87.1 Hypo-osmolality and hyponatremia; E87.2 Acidosis; K31.84 Gastroparesis; E11.43 Type 2 diabetes mellitus with diabetic autonomic (poly)neuropathy; E86.0 Dehydration; E83.41 Hypermagnesemia; F12.90 Cannabis use, unspecified, uncomplicated; E87.6 Hypokalemia ==

== ENCOUNTER 2019-02-11 18:37 | Emergency (ER) | payer MEDICARE ==
[~2019-02-11] VITALS: Ht 177.8 cm; Wt 79.7 kg
[~2019-02-11 18:37] MED LIST changes: +CONSTULOSE; -DICY10CA88 PO; +DICYCLOMINE 10 MG CAPSULE; +LACT1CAP26 PO; -NORT10CA2 PO; +SOD1POWD3 PO
[2019-02-11 19:59] LABS: BASOPHILS % (AUTO) 0.3 % (0-1); EOSINOPHILS # (AUTO) 0.2 X10'3 (0-0.9); EOSINOPHILS % (AUTO) 1.2 % (0-6); HEMATOCRIT 40.9 % (42.0-52.0); HEMOGLOBIN 13.8 g/dl (14.0-17.9); LYMPHOCYTES # (AUTO) 2.5 X10'3 (1.1-4.8); LYMPHOCYTES % (AUTO) 19.5 % (21-51); MEAN CORPUSCULAR HEMOGLOBIN 32.9 PG (27.0-31.0); MEAN CORPUSCULAR HGB CONC 33.8 g/dL (33.0-36.5); MEAN CORPUSCULAR VOLUME 97.4 FL (78-98); MEAN PLATELET VOLUME 8.8 FL (7.4-10.4); MONOCYTES # (AUTO) 0.8 X10'3 (0-0.9); MONOCYTES % (AUTO) 5.9 % (2-12); NEUTROPHILS # (AUTO) 9.4 X10'3 (1.8-7.7); NEUTROPHILS % (AUTO) 73.1 % (42-75); PLATELET COUNT 294 X10'3 (140-440); RED CELL DISTRIBUTION WIDTH 12.6 % (11.5-14.5); WHITE BLOOD COUNT 12.8 X10'3 (4.5-11.0)
[2019-02-11 20:14] LABS: ANION GAP 15 (8-16); BLOOD UREA NITROGEN 28 MG/DL (7-18); BUN/CREATININE RATIO 20.6 (5.4-32.0); CHLORIDE 105 MMOL/L (99-107); CREATININE 1.36 MG/DL (0.60-1.10); GLUCOSE 138 MG/DL (70-104); POTASSIUM 3.7 MMOL/L (3.5-5.1); SODIUM 139 MMOL/L (135-145); TOTAL CARBON DIOXIDE 19.4 MMOL/L (24-32)
[2019-02-11 20:15] LABS: ALANINE AMINOTRANSFERASE 23 U/L (12-78); ALBUMIN 3.7 G/DL (3.4-5.0); ALBUMIN/GLOBULIN RATIO 0.9 (1.1-1.5); ALKALINE PHOSPHATASE 73 IU/L (46-116); ASPARTATE AMINO TRANSFERASE 7 U/L (10-37); BILIRUBIN,TOTAL 0.3 MG/DL (0.1-1.0); CALCIUM 8.9 MG/DL (8.5-10.1); LIPASE 154 U/L (73-393); TOTAL PROTEIN 7.8 G/DL (6.4-8.2); eGFR 53 ML/MIN
[2019-02-11 21:04] LABS: CLARITY,URINE CLEAR (Clear); COLOR,URINE YELLOW (Yellow); GLUCOSE, URINE NEGATIVE (Neg); KETONES,URINE NEGATIVE (Neg); LEUKOCYTE ESTERASE ,URINE NEGATIVE (Neg); NITRITES, URINE NEGATIVE (Neg); OCCULT BLOOD,URINE NEGATIVE (Neg); PH,URINE 5.5 (4.8-8.0); PROTEIN,URINE TRACE mg/dl (Neg); UROBILINOGEN,URINE 0.2 E.U/dL (0.2-1.0)
[2019-02-11 21:06] LABS: UA COLLECTION TYPE FOLEY CATH
[2019-02-11 21:13] LABS: RBC,URINE NONE SEEN /HPF (0-2); WBC,URINE NONE SEEN /HPF (0-4)
[2019-02-11 21:14] LABS: AMORPHOUS URATES 1+; BACTERIA,URINE NONE SEEN /HPF (Neg); MUCUS STRANDS NONE SEEN /LPF (Neg); SQUAMOUS EPITHELIAL CELL,UR FEW /LPF (FEW)
[2019-02-11] MEDS ORDERED: FLO0.4C PO (21:49)
[2019-02-11 22:19] VITALS: BP 136/63
== END 2019-02-11 22:20 | disposition home or self-care (01) ==
LOC: ER 18:38
DX: N32.89 Other specified disorders of bladder (principal); R33.9 Retention of urine, unspecified; G89.29 Other chronic pain; I10 Essential (primary) hypertension; E11.9 Type 2 diabetes mellitus without complications; F12.90 Cannabis use, unspecified, uncomplicated; Z79.899 Other long term (current) drug therapy; Z98.890 Other specified postprocedural states
CPT/HCPCS: 36415; 51702; 80053; 81001; 83690; 85025; 85610; 99284

== ENCOUNTER 2019-02-28 07:22 | Emergency (ER) | payer MEDICARE ==
[~2019-02-28] VITALS: Ht 177.8 cm; Wt 91.5 kg
[~2019-02-28 07:22] MED LIST changes: +FLO0.4C PO
[2019-02-28 07:51] LABS: BASOPHILS # (AUTO) 0.1 X10'3 (0-0.2); BASOPHILS % (AUTO) 0.5 % (0-1); EOSINOPHILS # (AUTO) 0.1 X10'3 (0-0.9); EOSINOPHILS % (AUTO) 0.7 % (0-6); HEMATOCRIT 39.1 % (42.0-52.0); HEMOGLOBIN 13.5 g/dl (14.0-17.9); LYMPHOCYTES # (AUTO) 1.3 X10'3 (1.1-4.8); LYMPHOCYTES % (AUTO) 12.2 % (21-51); MEAN CORPUSCULAR HGB CONC 34.5 g/dL (33.0-36.5); MEAN CORPUSCULAR VOLUME 95.7 FL (78-98); MEAN PLATELET VOLUME 8.4 FL (7.4-10.4); MONOCYTES # (AUTO) 0.9 X10'3 (0-0.9); MONOCYTES % (AUTO) 8.2 % (2-12); NEUTROPHILS # (AUTO) 8.6 X10'3 (1.8-7.7); NEUTROPHILS % (AUTO) 78.4 % (42-75); PLATELET COUNT 271 X10'3 (140-440); RED BLOOD COUNT 4.08 X10'6 (4.70-6.10); RED CELL DISTRIBUTION WIDTH 12.5 % (11.5-14.5)
[2019-02-28] MEDS ORDERED: metoclopramide 5 mg/ml inj IV ONE (07:55)
[2019-02-28] MEDS ORDERED: diphenhydrAMINE 50 mg/ml inj IV ONE (07:55)
[2019-02-28] MEDS ORDERED: haloperidol lactate 5mg/ml inj IM ONE ×2 (07:55→08:55)
[2019-02-28 08:13] LABS: ALANINE AMINOTRANSFERASE 16 U/L (12-78); ALBUMIN 3.6 G/DL (3.4-5.0); ALBUMIN/GLOBULIN RATIO 0.8 (1.1-1.5); ALKALINE PHOSPHATASE 76 IU/L (46-116); ANION GAP 12 (8-16); ASPARTATE AMINO TRANSFERASE 4 U/L (10-37); BILIRUBIN,TOTAL 0.3 MG/DL (0.1-1.0); BLOOD UREA NITROGEN 35 MG/DL (7-18); BUN/CREATININE RATIO 22.6 (5.4-32.0); CALCIUM 9.6 MG/DL (8.5-10.1); CHLORIDE 104 MMOL/L (99-107); CREATININE 1.55 MG/DL (0.60-1.10); GLUCOSE 178 MG/DL (70-104); POTASSIUM 4.4 MMOL/L (3.5-5.1); SODIUM 138 MMOL/L (135-145); TOTAL CARBON DIOXIDE 22.3 MMOL/L (24-32); TOTAL PROTEIN 8.2 G/DL (6.4-8.2); eGFR 46 ML/MIN
[2019-02-28] MEDS ORDERED: morphine 4 MG/ML inj SYRINge IV ONE (08:30)
[2019-02-28] MEDS ORDERED: LORazepam 1 MG tablet PO ONE (11:10)
--- NOTE | 2019-02-28 11:10 | NUR ---
TOLERATED SIPS OF WATER. STILL HAVING SOME ABD DISCOMFORT BUT NO VOMITING AT THIS TIME.
[2019-02-28 11:14] VITALS: BP 122/60
== END 2019-02-28 11:17 | disposition home or self-care (01) ==
LOC: ER 07:23
DX: G89.29 Other chronic pain (principal); R10.9 Unspecified abdominal pain; I10 Essential (primary) hypertension; E11.9 Type 2 diabetes mellitus without complications; F41.9 Anxiety disorder, unspecified; F32.9 Major depressive disorder, single episode, unspecified; F12.90 Cannabis use, unspecified, uncomplicated; Z98.890 Other specified postprocedural states; Z79.899 Other long term (current) drug therapy
CPT/HCPCS: 36415; 80053; 85025; 85610; 96372; 96374; 96375; 99283; J1200; J1630; J2270; J2765

== ENCOUNTER 2019-03-03 22:49 | Emergency (ER) | payer MEDICARE ==
[~2019-03-03] VITALS: Ht 177.8 cm; Wt 90.0 kg
[2019-03-03] MEDS ORDERED: LORazepam 2 mg/ml vial IV ONE (23:20)
[2019-03-03] MEDS ORDERED: normal saline 1000ML IV soln IVB ONE ×2 (23:20)
[2019-03-03] MEDS ORDERED: proCHLORperazine 10 MG/2 ml inj IV ONE (23:20)
[2019-03-03 23:23] LABS: BASOPHILS # (AUTO) 0.1 X10'3 (0-0.2); BASOPHILS % (AUTO) 0.8 % (0-1); EOSINOPHILS # (AUTO) 0.1 X10'3 (0-0.9); EOSINOPHILS % (AUTO) 0.5 % (0-6); HEMOGLOBIN 13.3 g/dl (14.0-17.9); LYMPHOCYTES # (AUTO) 1.8 X10'3 (1.1-4.8); LYMPHOCYTES % (AUTO) 13.9 % (21-51); MEAN CORPUSCULAR HEMOGLOBIN 32.3 PG (27.0-31.0); MEAN CORPUSCULAR HGB CONC 34.1 g/dL (33.0-36.5); MEAN CORPUSCULAR VOLUME 94.8 FL (78-98); MEAN PLATELET VOLUME 8.2 FL (7.4-10.4); MONOCYTES # (AUTO) 0.9 X10'3 (0-0.9); MONOCYTES % (AUTO) 6.6 % (2-12); NEUTROPHILS # (AUTO) 10.4 X10'3 (1.8-7.7); NEUTROPHILS % (AUTO) 78.2 % (42-75); PLATELET COUNT 349 X10'3 (140-440); RED BLOOD COUNT 4.11 X10'6 (4.70-6.10); RED CELL DISTRIBUTION WIDTH 12.4 % (11.5-14.5); WHITE BLOOD COUNT 13.3 X10'3 (4.5-11.0)
[2019-03-03 23:32] LABS: ALANINE AMINOTRANSFERASE 19 U/L (12-78); ALBUMIN 3.6 G/DL (3.4-5.0); ALBUMIN/GLOBULIN RATIO 0.8 (1.1-1.5); ALKALINE PHOSPHATASE 71 IU/L (46-116); ANION GAP 11 (8-16); ASPARTATE AMINO TRANSFERASE 5 U/L (10-37); BILIRUBIN,TOTAL 0.3 MG/DL (0.1-1.0); BLOOD UREA NITROGEN 28 MG/DL (7-18); BUN/CREATININE RATIO 16.5 (5.4-32.0); CALCIUM 9.7 MG/DL (8.5-10.1); CHLORIDE 104 MMOL/L (99-107); GLUCOSE 210 MG/DL (70-104); LIPASE 307 U/L (73-393); SODIUM 139 MMOL/L (135-145); TOTAL CARBON DIOXIDE 23.7 MMOL/L (24-32); TOTAL PROTEIN 7.9 G/DL (6.4-8.2); eGFR 41 ML/MIN
--- NOTE | 2019-03-03 23:46 | NUR ---
PT TO X RAY WITH TECH
--- NOTE | 2019-03-04 00:19 | NUR ---
at bedside - pt updated on plan of care
--- NOTE | 2019-03-04 00:20 | NUR ---
encourage pt to void setting up for a room change
[2019-03-04 00:36] LABS: ETHANOL < 0.010 GM/DL (0.0-0.010)
--- NOTE | 2019-03-04 00:52 | NUR ---
SHEILA DUNCAN DISCONTINUED CARDIAC MONITORING
[2019-03-04] MEDS ORDERED: LORazepam 2 mg/ml vial IV ONE ×2 (01:55→12:55)
--- NOTE | 2019-03-04 01:59 | NUR ---
PT CALLING OUT "CHACHO, CHACHO FLOR" - UPON ENTERING THE ROOM PT REPORTS THAT HIS ABD PAIN AND SPASMING HAS RETURNED. MD AWARE AND MORE ATIVAN HAS BEEN ORDERED. PT WILL BE MEDICATED.
[2019-03-04] MEDS ORDERED: METO-292 PO (02:13)
[2019-03-04] MEDS ORDERED: METF-950 PO (02:13)
[2019-03-04] MEDS ORDERED: FLO0.4C PO (02:15)
--- NOTE | 2019-03-04 03:22 | NUR ---
INSTRUCTED PATIENT THAT MD NEEDS URINE SPECIMAN AND IF HE DOES NOT VOID HE WILL NEED TO HAVE A STRIGHT CATH TO OBTAIN SPECIAMN. PT VERBALIZED HE WILL NOW ALLOW THE STRIGHT CATH. sTRIGHT CATHED PT WITH 16 BULGARIAN SIDHU. DRAINED APPROXIMATLY 250 ML OF URINE. SPECIMAN SENT TO THE LAB
[2019-03-04 03:29] LABS: CLARITY,URINE SLIGHTLY CLOUDY (Clear); COLOR,URINE YELLOW (Yellow); GLUCOSE, URINE NEGATIVE (Neg); KETONES,URINE TRACE mg/dl (Neg); LEUKOCYTE ESTERASE ,URINE SMALL (Neg); NITRITES, URINE POSITIVE (Neg); OCCULT BLOOD,URINE TRACE-INTACT (Neg); PH,URINE 5.5 (4.8-8.0); PROTEIN,URINE TRACE mg/dl (Neg); UROBILINOGEN,URINE 0.2 E.U/dL (0.2-1.0)
[2019-03-04 03:33] LABS: UA COLLECTION TYPE STRAIGHT CATH
[2019-03-04 03:35] LABS: BACTERIA,URINE 4+ /HPF (Neg); RBC,URINE NONE SEEN /HPF (0-2); SQUAMOUS EPITHELIAL CELL,UR MODERATE /LPF (FEW); WBC,URINE TNTC /HPF (0-4)
[2019-03-04 03:36] LABS: WBC CLUMPS,URINE MANY /HPF (NEGATIVE)
[2019-03-04 03:43] LABS: URINE AMPHETAMINE SCREEN NEGATIVE (Neg); URINE BARBITUATE SCREEN NEGATIVE (Neg); URINE BENZODIAZEPINES SCREEN NEGATIVE (Neg); URINE CANNABINOID SCREEN POSITIVE (Neg); URINE COCAINE SCREEN NEGATIVE (Neg); URINE METHADONE SCREEN NEGATIVE (Neg); URINE OPIATE SCREEN NEGATIVE (Neg); URINE PHENCYCLIDINE SCREEN NEGATIVE (Neg)
[2019-03-04] MEDS ORDERED: CefTRIAXone/D5W-Rocephin 1gm 50 ML IV ONE (04:10)
[2019-03-04] MEDS ORDERED: CIPR-230 PO (04:11)
--- NOTE | 2019-03-04 05:07 | NUR ---
pt requesting water - a pitcher is brought to the bedside for pt
--- NOTE | 2019-03-04 05:57 | NUR ---
MD aware pt is experiencing pain again
--- NOTE | 2019-03-04 07:00 | NUR ---
PT SLEEPING, NO SIGNS OF RESPIRATORY DISTRESS
[2019-03-04] MEDS ORDERED: metFORMIN 500mg tablet PO SCH (07:30)
[2019-03-04] MEDS: metoclopramide 10mg tablet PO SCH ×2 (07:32→12:09)
[2019-03-04] MEDS ORDERED: haloperidol lactate 5mg/ml inj IM ONE (07:55)
[2019-03-04] MEDS ORDERED: tamsulosin 0.4mg capsule PO SCH (08:00)
--- NOTE | 2019-03-04 10:12 | NUR ---
PACKET FAXED TO [facility]
--- NOTE | 2019-03-04 10:55 | NUR ---
AT THE BEDSIDE STILL AWAITING EVAL
[2019-03-04 13:54] VITALS: BP 146/91
[2019-03-04] MEDS ORDERED: metoclopramide 10mg tablet PO SCH (21:00)
== END 2019-03-04 14:01 ==
LOC: ER 22:50
DX: K31.84 Gastroparesis (principal); N39.0 Urinary tract infection, site not specified; F32.9 Major depressive disorder, single episode, unspecified; K42.9 Umbilical hernia without obstruction or gangrene; I10 Essential (primary) hypertension; E11.9 Type 2 diabetes mellitus without complications; G89.29 Other chronic pain; F41.9 Anxiety disorder, unspecified; F12.90 Cannabis use, unspecified, uncomplicated; Z88.1 Allergy status to other antibiotic agents; Z79.84 Long term (current) use of oral hypoglycemic drugs; Z79.899 Other long term (current) drug therapy
CPT/HCPCS: 36415; 74021; 80053; 80305; 80320; 81001; 83690; 85025; 85610; 87088; 96365; 96372; 96375; 96376; 99285; J0696; J0780; J1630; J2060; J7030; P9612; 87077; 87186; J7040; J8597

== ENCOUNTER 2019-03-06 10:44 | Emergency (ER) | payer MEDICARE ==
[~2019-03-06] VITALS: Ht 177.8 cm; Wt 92.7 kg
[~2019-03-06 10:44] MED LIST changes: -AMLO5TAB16 PO; -CHOL200052 PO; +CIPR-230 PO; -CONSTULOSE; -DICYCLOMINE 10 MG CAPSULE; -LACT10SO PO; -LACT1CAP26 PO; +METF-950 PO; +METO-292 PO; -MIRT15TA8 PO; -PANT40TA4 PO; -SOD1POWD3 PO
[2019-03-06 11:45] LABS: BASOPHILS # (AUTO) 0.1 X10'3 (0-0.2); BASOPHILS % (AUTO) 1.1 % (0-1); EOSINOPHILS # (AUTO) 0.1 X10'3 (0-0.9); EOSINOPHILS % (AUTO) 0.6 % (0-6); HEMATOCRIT 41.7 % (42.0-52.0); HEMOGLOBIN 14.2 g/dl (14.0-17.9); LYMPHOCYTES # (AUTO) 2.3 X10'3 (1.1-4.8); LYMPHOCYTES % (AUTO) 18.2 % (21-51); MEAN CORPUSCULAR HEMOGLOBIN 32.7 PG (27.0-31.0); MEAN CORPUSCULAR HGB CONC 34.1 g/dL (33.0-36.5); MEAN PLATELET VOLUME 8.5 FL (7.4-10.4); MONOCYTES # (AUTO) 0.9 X10'3 (0-0.9); MONOCYTES % (AUTO) 6.9 % (2-12); NEUTROPHILS # (AUTO) 9.2 X10'3 (1.8-7.7); NEUTROPHILS % (AUTO) 73.2 % (42-75); PLATELET COUNT 432 X10'3 (140-440); RED BLOOD COUNT 4.34 X10'6 (4.70-6.10); RED CELL DISTRIBUTION WIDTH 12.5 % (11.5-14.5); WHITE BLOOD COUNT 12.6 X10'3 (4.5-11.0)
[2019-03-06 11:58] LABS: ALANINE AMINOTRANSFERASE 20 U/L (12-78); ALBUMIN 4.1 G/DL (3.4-5.0); ALKALINE PHOSPHATASE 72 IU/L (46-116); ANION GAP 12 (8-16); ASPARTATE AMINO TRANSFERASE 14 U/L (10-37); BILIRUBIN,TOTAL 0.3 MG/DL (0.1-1.0); BLOOD UREA NITROGEN 34 MG/DL (7-18); BUN/CREATININE RATIO 19.7 (5.4-32.0); CALCIUM 10.2 MG/DL (8.5-10.1); CHLORIDE 102 MMOL/L (99-107); CREATININE 1.73 MG/DL (0.60-1.10); GLUCOSE 167 MG/DL (70-104); LIPASE 105 U/L (73-393); SODIUM 139 MMOL/L (135-145); TOTAL CARBON DIOXIDE 24.7 MMOL/L (24-32); TOTAL PROTEIN 8.4 G/DL (6.4-8.2); eGFR 40 ML/MIN
[2019-03-06] MEDS ORDERED: normal saline 1000ML IV soln IVB ONE (12:10)
[2019-03-06] MEDS ORDERED: LORazepam 2 mg/ml vial IV ONE (12:10)
[2019-03-06] MEDS ORDERED: ondansetron/PF 4mg/2ml inj IV ONE (12:10)
[2019-03-06] MEDS: morphine 4 MG/ML inj SYRINge IV PRN ×2 (12:22→14:33)
--- NOTE | 2019-03-06 12:40 | NUR ---
MEDICATED FOR ANXIETY, PAIN AND NAUSEA. RESTING ON ROSALIO DAVIS. APPEARS RELIEVED OF DISCOMFORT AT THIS TIME.
[2019-03-06] MEDS ORDERED: haloperidol lactate 5mg/ml inj IM ONE (14:35)
[2019-03-06 15:50] VITALS: BP 143/73
== END 2019-03-06 15:59 | disposition home or self-care (01) ==
LOC: ER 10:44
DX: G89.29 Other chronic pain (principal); K31.84 Gastroparesis; R11.2 Nausea with vomiting, unspecified; I10 Essential (primary) hypertension; E11.9 Type 2 diabetes mellitus without complications; F41.9 Anxiety disorder, unspecified; F32.9 Major depressive disorder, single episode, unspecified; F12.90 Cannabis use, unspecified, uncomplicated; Z79.2 Long term (current) use of antibiotics; Z79.84 Long term (current) use of oral hypoglycemic drugs; Z98.890 Other specified postprocedural states; Z79.899 Other long term (current) drug therapy
CPT/HCPCS: 36415; 80053; 83690; 85025; 85610; 96361; 96372; 96374; 96375; 96376; 99283; J1630; J2060; J2270; J2405; J7030

== ENCOUNTER 2019-03-08 08:29 | Emergency (ER) | payer MEDICARE ==
[~2019-03-08] VITALS: Ht 157.5 cm; Wt 90.9 kg
[2019-03-08] MEDS ORDERED: famotidine/PF 10 mg/ml inj IV ONE (08:40)
[2019-03-08] MEDS ORDERED: morphine 4 MG/ML inj SYRINge IV PRN (08:40)
[2019-03-08] MEDS ORDERED: metoclopramide 5 mg/ml inj IV ONE (08:40)
[2019-03-08] MEDS ORDERED: LORazepam 2 mg/ml vial IV ONE (08:40)
[2019-03-08] MEDS ORDERED: normal saline 1000ML IV soln IVB ONE (08:40)
[2019-03-08 08:59] LABS: BASOPHILS # (AUTO) 0.1 X10'3 (0-0.2); BASOPHILS % (AUTO) 0.8 % (0-1); EOSINOPHILS # (AUTO) 0.1 X10'3 (0-0.9); HEMATOCRIT 41.6 % (42.0-52.0); HEMOGLOBIN 14.1 g/dl (14.0-17.9); LYMPHOCYTES # (AUTO) 1.6 X10'3 (1.1-4.8); LYMPHOCYTES % (AUTO) 15.8 % (21-51); MEAN CORPUSCULAR HEMOGLOBIN 32.3 PG (27.0-31.0); MEAN CORPUSCULAR VOLUME 95.1 FL (78-98); MEAN PLATELET VOLUME 8.5 FL (7.4-10.4); MONOCYTES # (AUTO) 0.6 X10'3 (0-0.9); NEUTROPHILS # (AUTO) 7.6 X10'3 (1.8-7.7); NEUTROPHILS % (AUTO) 76.4 % (42-75); PLATELET COUNT 374 X10'3 (140-440); RED BLOOD COUNT 4.38 X10'6 (4.70-6.10); RED CELL DISTRIBUTION WIDTH 12.5 % (11.5-14.5); WHITE BLOOD COUNT 9.9 X10'3 (4.5-11.0)
[2019-03-08 09:11] LABS: ALANINE AMINOTRANSFERASE 23 U/L (12-78); ALBUMIN 3.9 G/DL (3.4-5.0); ALKALINE PHOSPHATASE 68 IU/L (46-116); ANION GAP 10 (8-16); ASPARTATE AMINO TRANSFERASE 10 U/L (10-37); BILIRUBIN,TOTAL 0.3 MG/DL (0.1-1.0); BLOOD UREA NITROGEN 29 MG/DL (7-18); CALCIUM 9.5 MG/DL (8.5-10.1); CHLORIDE 104 MMOL/L (99-107); CREATININE 1.45 MG/DL (0.60-1.10); GLUCOSE 159 MG/DL (70-104); LIPASE 142 U/L (73-393); POTASSIUM 4.3 MMOL/L (3.5-5.1); SODIUM 137 MMOL/L (135-145); TOTAL CARBON DIOXIDE 23.2 MMOL/L (24-32); TOTAL PROTEIN 7.9 G/DL (6.4-8.2); eGFR 49 ML/MIN
[2019-03-08] MEDS ORDERED: PROC25SU31 RC (09:28)
[2019-03-08] MEDS ORDERED: ONDA4TAB6 PO (09:28)
[2019-03-08] MEDS ORDERED: haloperidol lactate 5mg/ml inj IM ONE (09:30)
[2019-03-08 09:41] VITALS: BP 109/48
== END 2019-03-08 09:50 | disposition home or self-care (01) ==
LOC: ER 08:30
DX: E11.43 Type 2 diabetes mellitus with diabetic autonomic (poly)neuropathy (principal); K31.84 Gastroparesis; R10.11 Right upper quadrant pain; R10.31 Right lower quadrant pain; G89.29 Other chronic pain; I10 Essential (primary) hypertension; F12.90 Cannabis use, unspecified, uncomplicated; Z98.890 Other specified postprocedural states; Z79.899 Other long term (current) drug therapy
CPT/HCPCS: 36415; 76700; 80053; 83690; 85025; 96372; 96374; 96375; 99284; J1630; J2060; J2765; J3490; J7030

== ENCOUNTER 2019-03-29 00:11 | Inpatient (IN) | payer MEDICARE, OTHER ==
[~2019-03-29] VITALS: Ht 177.8 cm; Wt 91.4 kg
[~2019-03-29 00:11] MED LIST changes: +ONDA4TAB6 PO; +PROC25SU31 RC
[2019-03-29] MEDS ORDERED: proCHLORperazine 10 MG/2 ml inj IV ONE (01:05)
[2019-03-29] MEDS ORDERED: morphine 4 MG/ML inj SYRINge IV ONE ×2 (01:05→02:10)
[2019-03-29 01:13] LABS: ALANINE AMINOTRANSFERASE 18 U/L (12-78); ALBUMIN 4.2 G/DL (3.4-5.0); ALKALINE PHOSPHATASE 83 IU/L (46-116); ANION GAP 16 (8-16); ASPARTATE AMINO TRANSFERASE 9 U/L (10-37); BILIRUBIN,TOTAL 0.4 MG/DL (0.1-1.0); BLOOD UREA NITROGEN 43 MG/DL (7-18); BUN/CREATININE RATIO 26.1 (5.4-32.0); CHLORIDE 110 MMOL/L (99-107); CREATININE 1.65 MG/DL (0.60-1.10); GLUCOSE 258 MG/DL (70-104); SODIUM 145 MMOL/L (135-145); TOTAL CARBON DIOXIDE 19.4 MMOL/L (24-32); TOTAL PROTEIN 8.6 G/DL (6.4-8.2); eGFR 42 ML/MIN
[2019-03-29 01:29] LABS: POTASSIUM 4.2 MMOL/L (3.5-5.1)
[2019-03-29 01:37] LABS: LIPASE 95 U/L (73-393)
[2019-03-29 01:47] LABS: BASOPHILS # (AUTO) 0.1 X10'3 (0-0.2); BASOPHILS % (AUTO) 0.3 % (0-1); EOSINOPHILS % (AUTO) 0 % (0-6); HEMATOCRIT 41.6 % (42.0-52.0); LYMPHOCYTES # (AUTO) 1.3 X10'3 (1.1-4.8); LYMPHOCYTES % (AUTO) 6.2 % (21-51); MEAN CORPUSCULAR HEMOGLOBIN 31.8 PG (27.0-31.0); MEAN CORPUSCULAR HGB CONC 33.6 g/dL (33.0-36.5); MEAN CORPUSCULAR VOLUME 94.6 FL (78-98); MEAN PLATELET VOLUME 9.1 FL (7.4-10.4); MONOCYTES # (AUTO) 1.1 X10'3 (0-0.9); MONOCYTES % (AUTO) 5.4 % (2-12); NEUTROPHILS # (AUTO) 17.9 X10'3 (1.8-7.7); NEUTROPHILS % (AUTO) 88.1 % (42-75); PLATELET COUNT 265 X10'3 (140-440); WHITE BLOOD COUNT 20.3 X10'3 (4.5-11.0)
--- NOTE | 2019-03-29 02:07 | NUR ---
pt given msiv and compazine 30 min ago , reprots some relief of his nausea but not relief of the severe 10 out of 10 pain to his mid and lower abdome. pt crying out "please help me" and restless in the bed lying on his left side. bp 209/79, hr 104.
--- NOTE | 2019-03-29 02:09 | NUR ---
pt uncooperative with general nursing assessment d/t his discomfort and severe pain. he reports i can ask his about his medical history. she is currently sleeping out in the car.
--- NOTE | 2019-03-29 03:39 | NUR ---
pt has been quiet in his room and not hollered out since being given the 2nd dose of msiv 4 mg. current bp 140/54.
--- NOTE | 2019-03-29 04:14 | NUR ---
pts at bedside. pt with stable vs.
[2019-03-29] MEDS ORDERED: ketamine 10mg/ml 20ml inj IV ONE (04:30)
[2019-03-29] MEDS ORDERED: ketamine 50 mg/ml 10ml vial IV ONE (04:35)
[2019-03-29] MEDS ORDERED: KETAMINE IV ONE (04:45)
[2019-03-29] MEDS ORDERED: NORMAL SALINE IV ONE (04:45)
--- NOTE | 2019-03-29 05:38 | NUR ---
PT GIVEN DETAMINE IVPB, 27MG. PT REPORTS NO RELIEF ONCE INFUSION COMPLETED. DR. WARD UPDATED, VERBAL RECEIVED FOR ATIVAN 1 MG IV X1 NOW. TO ORDER BLOOD CULTURES AND LACTIC.
[2019-03-29] MEDS ORDERED: LORazepam 2 mg/ml vial IV ONE ×2 (05:40→10:55)
--- NOTE | 2019-03-29 05:56 | NUR ---
, brandon cohen, cell [phone], home [phone]. she will go home to [place] and then come back to hospital. updated that pt's wbc is elevated and that Dr. Porter will talk to the day MD and suggest CT.
--- NOTE | 2019-03-29 06:00 | NUR ---
pt has been unable to provide urine sample and unwilling and too restless to allow straight cath.
[2019-03-29] MEDS ORDERED: piperacillin/tazo 3.375gm/50ml 50 ML IV ONE (06:10)
--- NOTE | 2019-03-29 10:20 | NUR ---
ultra sound at bedside
[2019-03-29 11:56] LABS: BASOPHILS # (AUTO) 0.1 X10'3 (0-0.2); BASOPHILS % (AUTO) 0.7 % (0-1); EOSINOPHILS % (AUTO) 0.1 % (0-6); HEMATOCRIT 38.6 % (42.0-52.0); LYMPHOCYTES # (AUTO) 2.3 X10'3 (1.1-4.8); LYMPHOCYTES % (AUTO) 12.8 % (21-51); MEAN CORPUSCULAR HEMOGLOBIN 32.1 PG (27.0-31.0); MEAN CORPUSCULAR HGB CONC 33.7 g/dL (33.0-36.5); MEAN CORPUSCULAR VOLUME 95.2 FL (78-98); MEAN PLATELET VOLUME 8.6 FL (7.4-10.4); MONOCYTES # (AUTO) 1.4 X10'3 (0-0.9); MONOCYTES % (AUTO) 7.5 % (2-12); NEUTROPHILS # (AUTO) 14.2 X10'3 (1.8-7.7); NEUTROPHILS % (AUTO) 78.9 % (42-75); PLATELET COUNT 230 X10'3 (140-440); RED BLOOD COUNT 4.05 X10'6 (4.70-6.10)
[2019-03-29] MEDS ORDERED: normal saline 1000ML IV soln IV ONE (12:30)
[2019-03-29] MEDS ORDERED: mag hydrox/Alum hydrox/simeth 30ml oral suspension PO PRN (12:35)
[2019-03-29] MEDS ORDERED: acetaminophen 325mg tablet PO PRN (12:35)
[2019-03-29] MEDS ORDERED: magnesium hydroxide 30ml (MOM) UD suspension PO PRN (12:35)
[2019-03-29] MEDS ORDERED: SERT50TA PO (13:07)
[2019-03-29] MEDS ORDERED: LACT10SO PO (13:08)
[2019-03-29] MEDS ORDERED: LORA0.5T PO (13:30)
[2019-03-29 13:42] LABS: COLOR,URINE YELLOW (Yellow); GLUCOSE, URINE 250 mg/dl (Neg); KETONES,URINE NEGATIVE (Neg); LEUKOCYTE ESTERASE ,URINE NEGATIVE (Neg); NITRITES, URINE POSITIVE (Neg); OCCULT BLOOD,URINE MODERATE (Neg); PROTEIN,URINE 30 mg/dl (Neg); UROBILINOGEN,URINE 0.2 E.U/dL (0.2-1.0)
[2019-03-29 13:44] LABS: CLARITY,URINE SLIGHTLY CLOUDY (Clear); UA COLLECTION TYPE STRAIGHT CATH
[2019-03-29 13:51] LABS: RBC,URINE NONE SEEN /HPF (0-2)
[2019-03-29 13:52] LABS: BACTERIA,URINE 1+ /HPF (Neg); MUCUS STRANDS NONE SEEN /LPF (Neg); SQUAMOUS EPITHELIAL CELL,UR NONE SEEN /LPF (FEW)
[2019-03-29 13:53] LABS: AMORPHOUS URATES 1+
[2019-03-29 13:54] LABS: HYALINE CASTS 0-3 /LPF (NEGATIVE)
--- NOTE | 2019-03-29 14:55 | NUR ---
Received report from DEBORAH Wolff RN. Patient is alert and oriented and vitals are stable at this time.
[2019-03-29 15:30] VITALS: BP 124/55
--- NOTE | 2019-03-29 15:30 | NUR ---
Patient very painful. Says that he really needs to void. VICKIE Chambers bladder scanned him and he had 625ml in his bladder. Dr. Stewart was here so I got a straight cath x1 order. The patient's encourage him to try to void before the straight cath. He voided a lot in the toilet. VICKIE Chambers re-scanned him and he had 150ml in. Patient voided approx. 475. He was not straight-cathed. Dr. Stewart also ordered his Flomax as a one time and then he will get another dose at 2100 as well. The patient's said that as long as he takes the Flomax he voids fine. He had missed two doses while being in the ER.
[2019-03-29] MEDS ORDERED: tamsulosin 0.4mg capsule PO ONE (15:55)
[2019-03-29] MEDS: normal saline 1000ml 1,000 ML IV SCH ×2 (16:17→22:33)
[2019-03-29] MEDS: metroNIDAZOLE-Flagyl 500mg/NS 100 ML IV SCH ×2 (16:24→23:56)
--- NOTE | 2019-03-29 17:15 | NUR ---
Dr. Stewart was paged regarding no hyper/hypoglycemic protocol orders on the patient. Patients' sugar checked anyway; it was 132. manager shift aware that there are no orders and they will attempt to get them from night doctor. Addendum: 03/29/19 at 1843 by Gayatri Beltran RN Dr. Stewart did not call back.
[2019-03-29] MEDS ORDERED: lactulose 20gm/30ml cup PO PRN (17:30)
[2019-03-29] MEDS ORDERED: proCHLORperazine 10 MG/2 ml inj IV PRN (17:30)
--- NOTE | 2019-03-29 18:25 | NUR ---
Patient in room [facility] 356. I have received report from VICKIE Mendieta and had the opportunity to ask questions and assume patient care.
--- NOTE | 2019-03-29 18:34 | NUR ---
Problems reprioritized. Patient report given, questions answered & plan of care reviewed with VICKIE Gonzalez.
[2019-03-29] MEDS: morphine 2 MG/ML inj. syringe IV PRN ×2 (19:35→23:56)
[2019-03-29] MEDS: ciprofloxacin lact 400MG/200ML 200 ML IV SCH (19:38)
[2019-03-29] MEDS: heparin, porcine 5000 units/ml vial SQ SCH (19:39)
[2019-03-29 20:00] VITALS: BP 128/81
[2019-03-29] MEDS: tamsulosin 0.4mg capsule PO SCH (21:23)
[2019-03-29] MEDS: LORazepam 0.5 MG tablet PO PRN (22:24)
[2019-03-29] MEDS: ondansetron/PF 4mg/2ml inj IV PRN (22:48)
[2019-03-29] MEDS ORDERED: glucagon, human recombinant 1mg kit SUBCUT PRN (22:55)
[2019-03-29] MEDS ORDERED: dextrose 50%-water 50ml dispensing syringe IV PRN ×2 (22:55)
[2019-03-29] MEDS ORDERED: insulin Lispro (HumaLOG) vial - multi-dose SQ SCH (22:55)
[2019-03-29] MEDS ORDERED: MESSAGE TO PHARMACY PO ONE (22:55)
[2019-03-29] MEDS ORDERED: dextrose ORAL solution 15 GM/59 ML bottle PO PRN ×2 (22:55)
[2019-03-30] VITALS: BP 119/71
[2019-03-30] MEDS: HYDROcodone/acetaminophen 5mg/325mg tablet PO PRN ×2 (03:29→19:42)
--- NOTE | 2019-03-30 03:35 | NUR ---
pt attempted but was unable to urinate. asked if pt wants us to bladder scan to check for urine, pt refused
[2019-03-30] MEDS: morphine 2 MG/ML inj. syringe IV PRN ×3 (04:21→23:50)
[2019-03-30] MEDS: LORazepam 0.5 MG tablet PO PRN (04:43)
--- NOTE | 2019-03-30 04:50 | NUR ---
pt allowed me to bladder scan, 545mL shown on scanner. pt still complaining of discomfort. paged. awaiting page, prn pain medication given awaiting new orders. after medication, pt voided 475mL, rescan showed no residual. pt appeared still uncomfortable and anxious, PRN ativan was given. called back, assessment of pt given, new orders received for bladder scan q4-6h and ativan dosage increased to 1mg q8h with 1mg now
[2019-03-30] MEDS ORDERED: LORazepam 1 MG tablet PO ONE (04:55)
[2019-03-30] MEDS: normal saline 1000ml 1,000 ML IV SCH ×2 (05:51→18:35)
[2019-03-30 05:56] LABS: ALBUMIN 3.3 G/DL (3.4-5.0); ANION GAP 14 (8-16); BLOOD UREA NITROGEN 26 MG/DL (7-18); BUN/CREATININE RATIO 22.8 (5.4-32.0); CALCIUM 8.7 MG/DL (8.5-10.1); CHLORIDE 109 MMOL/L (99-107); CREATININE 1.14 MG/DL (0.60-1.10); GLUCOSE 139 MG/DL (70-104); POTASSIUM 3.8 MMOL/L (3.5-5.1); SODIUM 143 MMOL/L (135-145); eGFR 65 ML/MIN
[2019-03-30 06:09] LABS: BASOPHILS # (AUTO) 0.1 X10'3 (0-0.2); BASOPHILS % (AUTO) 0.4 % (0-1); EOSINOPHILS # (AUTO) 0.1 X10'3 (0-0.9); EOSINOPHILS % (AUTO) 0.7 % (0-6); HEMOGLOBIN 11.9 g/dl (14.0-17.9); LYMPHOCYTES # (AUTO) 2.1 X10'3 (1.1-4.8); LYMPHOCYTES % (AUTO) 14.7 % (21-51); MEAN CORPUSCULAR HEMOGLOBIN 32.2 PG (27.0-31.0); MEAN CORPUSCULAR HGB CONC 34.1 g/dL (33.0-36.5); MEAN CORPUSCULAR VOLUME 94.6 FL (78-98); MEAN PLATELET VOLUME 8.7 FL (7.4-10.4); MONOCYTES # (AUTO) 0.9 X10'3 (0-0.9); MONOCYTES % (AUTO) 6.6 % (2-12); NEUTROPHILS # (AUTO) 10.9 X10'3 (1.8-7.7); NEUTROPHILS % (AUTO) 77.6 % (42-75); PLATELET COUNT 212 X10'3 (140-440); RED CELL DISTRIBUTION WIDTH 13.1 % (11.5-14.5); WHITE BLOOD COUNT 14.1 X10'3 (4.5-11.0)
--- NOTE | 2019-03-30 06:37 | NUR ---
Problems reprioritized. Patient report given, questions answered & plan of care reviewed with VICKIE Wilburn.
[2019-03-30 07:00] VITALS: BP 99/66
[2019-03-30] MEDS: metFORMIN 500mg tablet PO SCH (08:11)
[2019-03-30] MEDS: sertraline 50mg tablet PO SCH (08:11)
[2019-03-30] MEDS: metroNIDAZOLE-Flagyl 500mg/NS 100 ML IV SCH ×2 (08:12→16:14)
[2019-03-30] MEDS: LORazepam 1 MG tablet PO PRN ×2 (08:12→16:14)
[2019-03-30] MEDS: tamsulosin 0.4mg capsule PO SCH ×2 (08:12→20:45)
[2019-03-30] MEDS: heparin, porcine 5000 units/ml vial SQ SCH ×2 (08:13→19:40)
[2019-03-30] MEDS: metoclopramide 10mg tablet PO SCH ×3 (08:15→16:14)
[2019-03-30] MEDS: ciprofloxacin lact 400MG/200ML 200 ML IV SCH ×2 (08:16→19:40)
[2019-03-30] MEDS ORDERED: pneumococcal 23-VAL P-sac vacc 25 mcg/0.5ml vial IMVAC ONE (10:00)
[2019-03-30 11:00] VITALS: BP 121/68
--- NOTE | 2019-03-30 13:20 | NUR ---
DM consult: Pt with A1c 7.4 with hx T2DM and gastroparesis. Pt and SO seen at bedside. Pt with abdominal pain so discussion was with SO who reports pt takes Reglan at home which pt is receiving during admission. Written gastroparesis and DM education with referral to outpatient DM class and RD contact information provided. Pt currently on full liquid diet. Recommend diet advancement to low fiber CHO controlled as medically indicated. Malnutrition consult: Pt with no decrease in muscle strength or edema, current documented wt is +10 kg since last documented wt in October of this year. No visible fat or muscle wasting noted at the time of RD visit. Pt currently does not meet criteria for malnutrition. Will continue to follow. Addendum: 03/30/19 at [address] Amended: Links added.
--- NOTE | 2019-03-30 18:25 | NUR ---
Received report from VICKIE Wilburn. Patient is resting comfortably on room air, in no apparent distress. Call light and items of frequent use within reach. Will continue to monitor.
[2019-03-30] MEDS: lactobacillus rhamnosus 10,000 MMU CELLS/CAPSULE PO SCH (19:40)
[2019-03-30 20:00] VITALS: BP 150/60
[2019-03-30] MEDS: insulin glargine (Lantus) pen - multi-dose SQ SCH (20:44)
--- NOTE | 2019-03-30 23:15 | NUR ---
GAVE PT. MORPHINE 2 MG BUT iv WAS INFILTRATED.
[2019-03-31] VITALS: BP 126/59
[2019-03-31] MEDS: metroNIDAZOLE-Flagyl 500mg/NS 100 ML IV SCH ×3 (00:52→16:44)
[2019-03-31] MEDS: normal saline 1000ml 1,000 ML IV SCH ×3 (04:33→21:44)
[2019-03-31] MEDS: HYDROcodone/acetaminophen 5mg/325mg tablet PO PRN ×2 (04:33→21:47)
[2019-03-31] MEDS: LORazepam 1 MG tablet PO PRN ×3 (04:33→21:53)
[2019-03-31] MEDS: morphine 2 MG/ML inj. syringe IV PRN ×2 (05:43→19:32)
[2019-03-31 05:55] LABS: BASOPHILS # (AUTO) 0.1 X10'3 (0-0.2); BASOPHILS % (AUTO) 0.6 % (0-1); EOSINOPHILS # (AUTO) 0.1 X10'3 (0-0.9); HEMATOCRIT 36.2 % (42.0-52.0); HEMOGLOBIN 12.5 g/dl (14.0-17.9); LYMPHOCYTES # (AUTO) 2.6 X10'3 (1.1-4.8); LYMPHOCYTES % (AUTO) 22.9 % (21-51); MEAN CORPUSCULAR HEMOGLOBIN 32.8 PG (27.0-31.0); MEAN CORPUSCULAR HGB CONC 34.6 g/dL (33.0-36.5); MEAN PLATELET VOLUME 9.2 FL (7.4-10.4); MONOCYTES # (AUTO) 1.1 X10'3 (0-0.9); MONOCYTES % (AUTO) 9.6 % (2-12); NEUTROPHILS # (AUTO) 7.5 X10'3 (1.8-7.7); NEUTROPHILS % (AUTO) 65.9 % (42-75); PLATELET COUNT 199 X10'3 (140-440); RED BLOOD COUNT 3.82 X10'6 (4.70-6.10); RED CELL DISTRIBUTION WIDTH 12.7 % (11.5-14.5); WHITE BLOOD COUNT 11.4 X10'3 (4.5-11.0)
[2019-03-31 05:59] LABS: ALBUMIN 3.3 G/DL (3.4-5.0); ANION GAP 11 (8-16); BLOOD UREA NITROGEN 21 MG/DL (7-18); BUN/CREATININE RATIO 18.6 (5.4-32.0); CALCIUM 9.1 MG/DL (8.5-10.1); CHLORIDE 108 MMOL/L (99-107); CREATININE 1.13 MG/DL (0.60-1.10); GLUCOSE 112 MG/DL (70-104); POTASSIUM 3.8 MMOL/L (3.5-5.1); SODIUM 141 MMOL/L (135-145); TOTAL CARBON DIOXIDE 22.2 MMOL/L (24-32); eGFR 66 ML/MIN
--- NOTE | 2019-03-31 06:14 | NUR ---
Problems reprioritized. Patient report given, questions answered & plan of care reviewed with VICKIE Wilburn.
[2019-03-31 08:00] VITALS: BP 131/86
[2019-03-31] MEDS: ciprofloxacin lact 400MG/200ML 200 ML IV SCH ×2 (08:00→19:31)
[2019-03-31] MEDS: metFORMIN 500mg tablet PO SCH (09:55)
[2019-03-31] MEDS: heparin, porcine 5000 units/ml vial SQ SCH ×2 (09:55→19:33)
[2019-03-31] MEDS: sertraline 50mg tablet PO SCH (09:55)
[2019-03-31] MEDS: metoclopramide 10mg tablet PO SCH ×3 (09:55→17:17)
[2019-03-31] MEDS: lactobacillus rhamnosus 10,000 MMU CELLS/CAPSULE PO SCH ×2 (09:55→19:31)
[2019-03-31] MEDS: tamsulosin 0.4mg capsule PO SCH ×2 (09:55→21:39)
[2019-03-31] MEDS ORDERED: pneumococcal 23-VAL P-sac vacc 25 mcg/0.5ml vial IMVAC ONE (10:00)
[2019-03-31 11:00] VITALS: BP 150/72
[2019-03-31 20:00] VITALS: BP 145/76
[2019-03-31] MEDS: insulin glargine (Lantus) pen - multi-dose SQ SCH (21:00)
[2019-03-31] MEDS ORDERED: temazepam 15mg capsule PO ONE (22:40)
[2019-04-01] MEDS: metroNIDAZOLE-Flagyl 500mg/NS 100 ML IV SCH ×2 (01:54→07:10)
[2019-04-01 02:01] VITALS: BP 122/72
[2019-04-01] MEDS: ondansetron/PF 4mg/2ml inj IV PRN (02:48)
[2019-04-01] MEDS: HYDROcodone/acetaminophen 5mg/325mg tablet PO PRN (04:28)
[2019-04-01 05:44] LABS: BASOPHILS # (AUTO) 0.1 X10'3 (0-0.2); BASOPHILS % (AUTO) 0.5 % (0-1); EOSINOPHILS # (AUTO) 0.1 X10'3 (0-0.9); EOSINOPHILS % (AUTO) 0.8 % (0-6); HEMOGLOBIN 12.2 g/dl (14.0-17.9); LYMPHOCYTES # (AUTO) 1.3 X10'3 (1.1-4.8); LYMPHOCYTES % (AUTO) 12.1 % (21-51); MEAN CORPUSCULAR HEMOGLOBIN 31.9 PG (27.0-31.0); MEAN CORPUSCULAR HGB CONC 33.9 g/dL (33.0-36.5); MEAN CORPUSCULAR VOLUME 94.4 FL (78-98); MEAN PLATELET VOLUME 8.6 FL (7.4-10.4); MONOCYTES % (AUTO) 9.4 % (2-12); NEUTROPHILS # (AUTO) 8.2 X10'3 (1.8-7.7); NEUTROPHILS % (AUTO) 77.2 % (42-75); PLATELET COUNT 210 X10'3 (140-440); RED BLOOD COUNT 3.82 X10'6 (4.70-6.10); WHITE BLOOD COUNT 10.6 X10'3 (4.5-11.0)
[2019-04-01 06:00] LABS: ALBUMIN 3.3 G/DL (3.4-5.0); ANION GAP 12 (8-16); BLOOD UREA NITROGEN 16 MG/DL (7-18); BUN/CREATININE RATIO 13.6 (5.4-32.0); CALCIUM 9.3 MG/DL (8.5-10.1); CHLORIDE 105 MMOL/L (99-107); CREATININE 1.18 MG/DL (0.60-1.10); GLUCOSE 115 MG/DL (70-104); POTASSIUM 3.3 MMOL/L (3.5-5.1); SODIUM 139 MMOL/L (135-145); TOTAL CARBON DIOXIDE 21.7 MMOL/L (24-32); eGFR 63 ML/MIN
--- NOTE | 2019-04-01 06:30 | NUR ---
Patient in room [facility] 356. I have received report from Lita JOHNSTON and had the opportunity to ask questions and assume patient care.
--- NOTE | 2019-04-01 06:35 | NUR ---
Problems reprioritized. Patient report given, questions answered & plan of care reviewed with VICKIE Eaton.
[2019-04-01] MEDS: LORazepam 1 MG tablet PO PRN (07:11)
[2019-04-01] MEDS: heparin, porcine 5000 units/ml vial SQ SCH (07:11)
[2019-04-01] MEDS: metoclopramide 10mg tablet PO SCH (07:11)
[2019-04-01] MEDS: tamsulosin 0.4mg capsule PO SCH (07:11)
[2019-04-01] MEDS: metFORMIN 500mg tablet PO SCH (07:11)
[2019-04-01] MEDS: sertraline 50mg tablet PO SCH (07:11)
[2019-04-01] MEDS: lactobacillus rhamnosus 10,000 MMU CELLS/CAPSULE PO SCH (07:11)
[2019-04-01 07:46] VITALS: BP 154/80
[2019-04-01] MEDS: ciprofloxacin lact 400MG/200ML 200 ML IV SCH (08:12)
[2019-04-01] MEDS ORDERED: POTASSIUM BICARB 20meq eff tab 20 MEQ TABLET.EFF PO ONE (08:25)
--- NOTE | 2019-04-01 10:14 | NUR ---
Discharge paperwork gone over with pt. Pt discharged with all belongings. to take pt home. W/c to front lobby. IV taken out, tele taken off.
== END 2019-04-01 10:10 | disposition home or self-care (01) | DRG 372 ==
LOC: ER 00:12 → SUR 3N 15:14 → CMPBEDREQ 19:35
PROVIDERS: ADMIT Family Medicine; ATTEND Internal Medicine
PROC: 3E0234Z Introduction of Serum, Toxoid and Vaccine into Muscle, Percutaneous Approach (ICD-10-PCS; principal; 2019-03-31)
DX: A04.9 Bacterial intestinal infection, unspecified (principal); N17.9 Acute kidney failure, unspecified; E87.2 Acidosis; K31.84 Gastroparesis; E11.43 Type 2 diabetes mellitus with diabetic autonomic (poly)neuropathy; F12.90 Cannabis use, unspecified, uncomplicated; E86.0 Dehydration; F32.9 Major depressive disorder, single episode, unspecified; F12.988 Cannabis use, unspecified with other cannabis-induced disorder; G89.29 Other chronic pain; I10 Essential (primary) hypertension; K43.9 Ventral hernia without obstruction or gangrene; Z79.899 Other long term (current) drug therapy; Z23 Encounter for immunization; Z79.84 Long term (current) use of oral hypoglycemic drugs; Z83.3 Family history of diabetes mellitus; Z80.42 Family history of malignant neoplasm of prostate
CPT/HCPCS: 36415; 71045; 74176; 76700; 80048; 80053; 81001; 82948; 83036; 83605; 83690; 85025; 85610; 87077; 87081; 87088; 87186; 90732; 96361; 96365; 96367; 96375; 96376; 99285; G0378; J0744; J0780; J1644; J1815; J2060; J2270; J2405; J2543; J3490; J7030; J8597

== ENCOUNTER 2019-04-06 13:02 | Emergency (ER) | payer MEDICARE, OTHER ==
[~2019-04-06] VITALS: Ht 177.8 cm; Wt 90.0 kg
[~2019-04-06 13:02] MED LIST changes: -CIPR-230 PO; +LACT10SO PO; +LORA0.5T PO; -METO-292 PO; -ONDA4TAB6 PO; -PROC25SU31 RC; +SERT50TA PO
[2019-04-06] MEDS ORDERED: haloperidol lactate 5mg/ml inj IM ONE ×2 (14:20)
[2019-04-06] MEDS ORDERED: LORazepam 2 mg/ml vial IV ONE ×2 (14:20)
[2019-04-06] MEDS ORDERED: normal saline 1000ML IV soln IVB ONE (14:35)
[2019-04-06 14:50] LABS: BASOPHILS % (AUTO) 0.3 % (0-1); EOSINOPHILS # (AUTO) 0.1 X10'3 (0-0.9); EOSINOPHILS % (AUTO) 0.6 % (0-6); HEMATOCRIT 39.2 % (42.0-52.0); HEMOGLOBIN 13.1 g/dl (14.0-17.9); LYMPHOCYTES # (AUTO) 2.6 X10'3 (1.1-4.8); LYMPHOCYTES % (AUTO) 16.5 % (21-51); MEAN CORPUSCULAR HEMOGLOBIN 31.8 PG (27.0-31.0); MEAN CORPUSCULAR HGB CONC 33.4 g/dL (33.0-36.5); MEAN CORPUSCULAR VOLUME 95.4 FL (78-98); MEAN PLATELET VOLUME 9.5 FL (7.4-10.4); MONOCYTES # (AUTO) 1.3 X10'3 (0-0.9); MONOCYTES % (AUTO) 7.8 % (2-12); NEUTROPHILS % (AUTO) 74.8 % (42-75); PLATELET COUNT 313 X10'3 (140-440); RED BLOOD COUNT 4.11 X10'6 (4.70-6.10); RED CELL DISTRIBUTION WIDTH 13.4 % (11.5-14.5)
[2019-04-06 15:01] LABS: ALANINE AMINOTRANSFERASE 52 U/L (12-78); ALBUMIN 3.8 G/DL (3.4-5.0); ALKALINE PHOSPHATASE 67 IU/L (46-116); ANION GAP 13 (8-16); ASPARTATE AMINO TRANSFERASE 10 U/L (10-37); BILIRUBIN,TOTAL 0.4 MG/DL (0.1-1.0); BLOOD UREA NITROGEN 53 MG/DL (7-18); BUN/CREATININE RATIO 31.7 (5.4-32.0); CALCIUM 9.4 MG/DL (8.5-10.1); CHLORIDE 102 MMOL/L (99-107); CREATININE 1.67 MG/DL (0.60-1.10); GLUCOSE 167 MG/DL (70-104); LIPASE 95 U/L (73-393); SODIUM 139 MMOL/L (135-145); TOTAL CARBON DIOXIDE 24.3 MMOL/L (24-32); TOTAL PROTEIN 7.8 G/DL (6.4-8.2); eGFR 42 ML/MIN
[2019-04-06 15:50] VITALS: BP 129/74
== END 2019-04-06 15:52 | disposition home or self-care (01) ==
LOC: ER 13:02
DX: G89.29 Other chronic pain (principal); R10.84 Generalized abdominal pain; I10 Essential (primary) hypertension; K31.84 Gastroparesis; E11.43 Type 2 diabetes mellitus with diabetic autonomic (poly)neuropathy; E11.9 Type 2 diabetes mellitus without complications; F41.9 Anxiety disorder, unspecified; F32.9 Major depressive disorder, single episode, unspecified; F12.90 Cannabis use, unspecified, uncomplicated; Z87.19 Personal history of other diseases of the digestive system; Z98.890 Other specified postprocedural states; Z79.899 Other long term (current) drug therapy
CPT/HCPCS: 36415; 80053; 83690; 85025; 96372; 96374; 99283; J1630; J2060; J7030

== ENCOUNTER 2019-05-03 09:37 | Emergency (ER) | payer MEDICARE ==
[~2019-05-03] VITALS: Ht 177.8 cm; Wt 86.0 kg
[2019-05-03] MEDS ORDERED: diphenhydrAMINE 50 mg/ml inj IV ONE (09:50)
[2019-05-03] MEDS ORDERED: normal saline 1000ML IV soln IVB ONE ×2 (09:50)
[2019-05-03] MEDS ORDERED: metoclopramide 5 mg/ml inj IV ONE (09:50)
[2019-05-03] MEDS ORDERED: LORazepam 2 mg/ml vial IV ONE (09:50)
[2019-05-03 10:12] LABS: BASOPHILS # (AUTO) 0.1 X10'3 (0-0.2); BASOPHILS % (AUTO) 0.3 % (0-1); EOSINOPHILS # (AUTO) 0.1 X10'3 (0-0.9); EOSINOPHILS % (AUTO) 0.5 % (0-6); HEMATOCRIT 35.4 % (42.0-52.0); HEMOGLOBIN 12.1 g/dl (14.0-17.9); LYMPHOCYTES # (AUTO) 1.7 X10'3 (1.1-4.8); MEAN CORPUSCULAR HEMOGLOBIN 32.4 PG (27.0-31.0); MEAN CORPUSCULAR HGB CONC 34.2 g/dL (33.0-36.5); MEAN PLATELET VOLUME 8.3 FL (7.4-10.4); MONOCYTES # (AUTO) 1.2 X10'3 (0-0.9); MONOCYTES % (AUTO) 6.3 % (2-12); NEUTROPHILS # (AUTO) 15.7 X10'3 (1.8-7.7); NEUTROPHILS % (AUTO) 83.9 % (42-75); PLATELET COUNT 271 X10'3 (140-440); RED BLOOD COUNT 3.73 X10'6 (4.70-6.10); RED CELL DISTRIBUTION WIDTH 14.1 % (11.5-14.5); WHITE BLOOD COUNT 18.8 X10'3 (4.5-11.0)
[2019-05-03 10:26] LABS: ALANINE AMINOTRANSFERASE 20 U/L (12-78); ALBUMIN 3.8 G/DL (3.4-5.0); ALBUMIN/GLOBULIN RATIO 0.8 (1.1-1.5); ALKALINE PHOSPHATASE 90 IU/L (46-116); ANION GAP 14 (8-16); ASPARTATE AMINO TRANSFERASE 10 U/L (10-37); BILIRUBIN,TOTAL 0.4 MG/DL (0.1-1.0); BLOOD UREA NITROGEN 47 MG/DL (7-18); BUN/CREATININE RATIO 29.9 (5.4-32.0); CALCIUM 9.5 MG/DL (8.5-10.1); CHLORIDE 101 MMOL/L (99-107); CREATININE 1.57 MG/DL (0.60-1.10); GLUCOSE 176 MG/DL (70-104); LIPASE 179 U/L (73-393); POTASSIUM 4.1 MMOL/L (3.5-5.1); SODIUM 136 MMOL/L (135-145); TOTAL CARBON DIOXIDE 21.2 MMOL/L (24-32); TOTAL PROTEIN 8.5 G/DL (6.4-8.2); eGFR 45 ML/MIN
[2019-05-03] MEDS ORDERED: PROM25TA14 PO (12:09)
[2019-05-03 12:23] VITALS: BP 132/67
[2019-05-04] MEDS ORDERED: PHEN-824 PO (17:40)
[2019-05-04] MEDS ORDERED: B030R RC (17:40)
== END 2019-05-03 12:25 | disposition home or self-care (01) ==
LOC: ER 09:38
DX: R10.84 Generalized abdominal pain (principal); I10 Essential (primary) hypertension; G89.29 Other chronic pain; F12.90 Cannabis use, unspecified, uncomplicated; E11.43 Type 2 diabetes mellitus with diabetic autonomic (poly)neuropathy; K31.84 Gastroparesis; Z98.890 Other specified postprocedural states; Z79.899 Other long term (current) drug therapy
CPT/HCPCS: 36415; 80053; 83690; 85025; 85610; 96374; 96375; 99284; J1200; J2060; J2765; J7030

== ENCOUNTER 2019-05-04 09:01 | Emergency (ER) | payer MEDICARE ==
[~2019-05-04] VITALS: Ht 177.8 cm; Wt 90.9 kg
[~2019-05-04 09:01] MED LIST changes: +PROM25TA14 PO
[2019-05-04 10:37] VITALS: BP 161/127
[2019-05-04] MEDS ORDERED: PHEN-824 PO (17:40)
[2019-05-04] MEDS ORDERED: B030R RC (17:40)
== END 2019-05-04 10:40 | disposition home or self-care (01) ==
LOC: ER 09:02
DX: R33.9 Retention of urine, unspecified (principal); I10 Essential (primary) hypertension; E11.9 Type 2 diabetes mellitus without complications; G89.29 Other chronic pain; F41.9 Anxiety disorder, unspecified; F32.9 Major depressive disorder, single episode, unspecified; F12.90 Cannabis use, unspecified, uncomplicated; Z98.890 Other specified postprocedural states; Z79.82 Long term (current) use of aspirin; Z79.899 Other long term (current) drug therapy
CPT/HCPCS: 51702; 99284

== ENCOUNTER 2019-05-04 15:15 | Emergency (ER) | payer MEDICARE ==
[~2019-05-04] VITALS: Ht 177.8 cm; Wt 90.0 kg
[2019-05-04 15:40] VITALS: BP 154/93
[2019-05-04] MEDS ORDERED: opium/belladonna alkaloids No. 15A 30mg rectal suppository RC ONE (16:20)
[2019-05-04] MEDS ORDERED: glycopyrrolate 0.2mg/ml inj IM ONE (16:20)
--- NOTE | 2019-05-04 16:27 | NUR ---
called pharmacy reagrding pt suppository ,as per pharmacy they are still working on it and they will bring it back here.
--- NOTE | 2019-05-04 17:04 | NUR ---
pt meds administred a sper orders ,pt and explained the action of medication and its effect,pt and verbalized understanding,pt medication took longer to process from pharmacy.
[2019-05-04] MEDS ORDERED: B030R RC (17:40)
[2019-05-04] MEDS ORDERED: PHEN-824 PO (17:40)
--- NOTE | 2019-05-04 17:49 | NUR ---
PT FELT GREAT AFTER THE SUPPOSITORY AND THE INJ ,PT READY TO GO HOME NEW LEG BAG PLACED PER MD ORDERS ,PT WHEELED OUT OF ER BY BRIAN GUERRERO WITH ALL D/C PAPER WORK.
== END 2019-05-04 17:49 | disposition home or self-care (01) ==
LOC: ER 15:16
DX: N32.89 Other specified disorders of bladder (principal); I10 Essential (primary) hypertension; E11.9 Type 2 diabetes mellitus without complications; G89.29 Other chronic pain; F12.90 Cannabis use, unspecified, uncomplicated; Z98.890 Other specified postprocedural states; Z79.899 Other long term (current) drug therapy
CPT/HCPCS: 96372; 99284; J3490

== ENCOUNTER 2019-05-04 20:47 | Emergency (ER) | payer MEDICARE ==
[~2019-05-04] VITALS: Ht 177.8 cm; Wt 100.0 kg
[~2019-05-04 20:47] MED LIST changes: +B030R RC; +PHEN-824 PO
[2019-05-04 20:56] VITALS: BP 125/69
--- NOTE | 2019-05-04 22:19 | NUR ---
BLADDER SCANNED, 22 CC'S NOTED IN BLADDER. PT GRIMMACING AND IN PAIN WHEN TURNING OVER TO POSITION FOR THEBLADDER SCAN. PTS AT BEDSIDE. LEG BAG WITH 150 CC, LIGHT BECCA CLEAR URINE
[2019-05-04] MEDS ORDERED: LIDOcaine 2% 10ml TOPICAL JELLY (Urojet) MM ONE (22:35)
--- NOTE | 2019-05-04 23:00 | NUR ---
OFFERED TO COLLECT AND RUN A UA WHEN WE REMOVED THE CATH THERE WAS SOME PURULENT MATERIAL ON THE CATH. THEY DO NOT WANT TO WAIT TO RUN AND UA AND STATE THAT HE HAS AN APPOINTMENT TOMORROW WITH PMD AND WILL HAVE THEM DO A UA.
== END 2019-05-04 23:24 | disposition home or self-care (01) ==
LOC: ER 20:47
DX: T83.038A Leakage of other urinary catheter, initial encounter (principal); E11.9 Type 2 diabetes mellitus without complications; G89.29 Other chronic pain; I10 Essential (primary) hypertension; F12.90 Cannabis use, unspecified, uncomplicated; Z98.890 Other specified postprocedural states; Z79.899 Other long term (current) drug therapy; Y92.89 Other specified places as the place of occurrence of the external cause
CPT/HCPCS: 51702; 96372; 99284; J3490

== ENCOUNTER 2019-12-28 15:33 | Emergency (ER) | payer MEDICARE ==
[~2019-12-28] VITALS: Ht 177.8 cm; Wt 115.0 kg
[~2019-12-28 15:33] MED LIST changes: -B030R RC; -PROM25TA14 PO
--- NOTE | 2019-12-28 15:40 | NUR ---
brandon [phone]
[2019-12-28] MEDS ORDERED: normal saline 1000ML IV soln IVB ONE ×2 (15:50→16:45)
[2019-12-28 16:32] LABS: BASOPHILS # (AUTO) 0.1 X10'3 (0-0.2); BASOPHILS % (AUTO) 0.5 % (0-1); EOSINOPHILS # (AUTO) 0.2 X10'3 (0-0.9); EOSINOPHILS % (AUTO) 1.5 % (0-6); HEMATOCRIT 40.3 % (42.0-52.0); HEMOGLOBIN 13.3 g/dl (14.0-17.9); LYMPHOCYTES # (AUTO) 2.3 X10'3 (1.1-4.8); LYMPHOCYTES % (AUTO) 18.3 % (21-51); MEAN CORPUSCULAR HEMOGLOBIN 31.4 PG (27.0-31.0); MEAN CORPUSCULAR HGB CONC 33.1 g/dL (33.0-36.5); MEAN CORPUSCULAR VOLUME 94.8 FL (78-98); MEAN PLATELET VOLUME 8.7 FL (7.4-10.4); MONOCYTES # (AUTO) 0.9 X10'3 (0-0.9); MONOCYTES % (AUTO) 6.9 % (2-12); NEUTROPHILS # (AUTO) 9.3 X10'3 (1.8-7.7); NEUTROPHILS % (AUTO) 72.8 % (42-75); PLATELET COUNT 281 X10'3 (140-440); RED BLOOD COUNT 4.25 X10'6 (4.70-6.10); RED CELL DISTRIBUTION WIDTH 13.1 % (11.5-14.5); WHITE BLOOD COUNT 12.8 X10'3 (4.5-11.0)
[2019-12-28 16:45] LABS: ALANINE AMINOTRANSFERASE 17 U/L (12-78); ALBUMIN 3.9 G/DL (3.4-5.0); ALBUMIN/GLOBULIN RATIO 0.9 (1.1-1.5); ALKALINE PHOSPHATASE 75 IU/L (46-116); ANION GAP 12 (8-16); ASPARTATE AMINO TRANSFERASE 10 U/L (10-37); BILIRUBIN,TOTAL 0.2 MG/DL (0.1-1.0); BLOOD UREA NITROGEN 51 MG/DL (7-18); BUN/CREATININE RATIO 32.3 (5.4-32.0); CALCIUM 9.2 MG/DL (8.5-10.1); CHLORIDE 109 MMOL/L (99-107); CREATININE 1.58 MG/DL (0.60-1.10); GLUCOSE 172 MG/DL (70-104); POTASSIUM 4.6 MMOL/L (3.5-5.1); SODIUM 143 MMOL/L (135-145); TOTAL CARBON DIOXIDE 21.6 MMOL/L (24-32); TOTAL PROTEIN 8.1 G/DL (6.4-8.2); eGFR 45 ML/MIN
[2019-12-28] MEDS ORDERED: ondansetron/PF 4mg/2ml inj IV ONE (16:45)
[2019-12-28] MEDS ORDERED: LORazepam 2 mg/ml vial IV ONE ×2 (16:45→19:20)
[2019-12-28] MEDS ORDERED: morphine 4 MG/ML inj SYRINge IV PRN (16:45)
[2019-12-28 17:25] LABS: CLARITY,URINE SLIGHTLY CLOUDY (Clear); COLOR,URINE YELLOW (Yellow); GLUCOSE, URINE 100 mg/dl (Neg); KETONES,URINE NEGATIVE (Neg); LEUKOCYTE ESTERASE ,URINE NEGATIVE (Neg); NITRITES, URINE NEGATIVE (Neg); OCCULT BLOOD,URINE SMALL (Neg); PH,URINE 5.5 (4.8-8.0); PROTEIN,URINE TRACE mg/dl (Neg); UROBILINOGEN,URINE 0.2 E.U/dL (0.2-1.0)
[2019-12-28 17:36] LABS: UA COLLECTION TYPE STRAIGHT CATH
[2019-12-28 17:39] LABS: BACTERIA,URINE FEW /HPF (Neg); MUCUS STRANDS FEW /LPF (Neg); RBC,URINE 0-2 /HPF (0-2); SQUAMOUS EPITHELIAL CELL,UR FEW /LPF (FEW); WBC,URINE 0-4 /HPF (0-4)
[2019-12-28 17:40] LABS: AMORPHOUS URATES 1+; HYALINE CASTS 0-3 /LPF (NEGATIVE); WBC CLUMPS,URINE FEW /HPF (NEGATIVE)
--- NOTE | 2019-12-28 17:40 | NUR ---
PT BACK FROM CT, PRESENTS SHAKING AND CRYING IN PAIN, PAIN MEDS ADMINISTERED, WILL CONTINUE TO MONITOR
[2019-12-28 18:44] VITALS: BP 149/70
[2019-12-28] MEDS ORDERED: FLO0.4C PO (19:01)
--- NOTE | 2019-12-28 19:37 | NUR ---
patient provided large leg bag and educated on how to change [employer]well bags with verbal education
--- NOTE | 2019-12-31 11:50 | NUR ---
PT. CAME BACK IN ON THE DR. HILL WROTE FOR AN ANTIBIOTIC
== END 2019-12-28 21:41 | disposition home or self-care (01) ==
LOC: ER 15:35
DX: R33.9 Retention of urine, unspecified (principal); R10.84 Generalized abdominal pain; F41.9 Anxiety disorder, unspecified; I10 Essential (primary) hypertension; E11.9 Type 2 diabetes mellitus without complications; G89.29 Other chronic pain; F32.9 Major depressive disorder, single episode, unspecified; F12.90 Cannabis use, unspecified, uncomplicated; Z98.890 Other specified postprocedural states; Z79.899 Other long term (current) drug therapy
CPT/HCPCS: 36415; 74176; 80053; 81001; 85025; 87077; 87088; 87186; 96374; 96375; 96376; 99284; J2060; J2270; J2405; J7030

== ENCOUNTER 2019-12-31 08:18 | Emergency (ER) | payer MEDICARE ==
[~2019-12-31] VITALS: Ht 177.8 cm; Wt 100.0 kg
[2019-12-31] MEDS ORDERED: opium/belladonna alkaloids No. 15A 30mg rectal suppository RC STA (08:47)
[2019-12-31 08:48] LABS: BASOPHILS # (AUTO) 0.1 X10'3 (0-0.2); BASOPHILS % (AUTO) 0.7 % (0-1); EOSINOPHILS # (AUTO) 0.2 X10'3 (0-0.9); EOSINOPHILS % (AUTO) 1.4 % (0-6); HEMOGLOBIN 13.2 g/dl (14.0-17.9); LYMPHOCYTES # (AUTO) 1.7 X10'3 (1.1-4.8); LYMPHOCYTES % (AUTO) 10.8 % (21-51); MEAN CORPUSCULAR HEMOGLOBIN 32.3 PG (27.0-31.0); MEAN CORPUSCULAR HGB CONC 33.8 g/dL (33.0-36.5); MEAN CORPUSCULAR VOLUME 95.7 FL (78-98); MEAN PLATELET VOLUME 8.5 FL (7.4-10.4); MONOCYTES # (AUTO) 1.1 X10'3 (0-0.9); NEUTROPHILS # (AUTO) 12.7 X10'3 (1.8-7.7); NEUTROPHILS % (AUTO) 80.1 % (42-75); PLATELET COUNT 256 X10'3 (140-440); RED BLOOD COUNT 4.07 X10'6 (4.70-6.10); RED CELL DISTRIBUTION WIDTH 12.9 % (11.5-14.5); WHITE BLOOD COUNT 15.9 X10'3 (4.5-11.0)
[2019-12-31 09:03] LABS: CLARITY,URINE CLOUDY (Clear); COLOR,URINE YELLOW (Yellow); GLUCOSE, URINE >=1000 mg/dl (Neg); KETONES,URINE NEGATIVE (Neg); LEUKOCYTE ESTERASE ,URINE TRACE (Neg); NITRITES, URINE POSITIVE (Neg); OCCULT BLOOD,URINE LARGE (Neg); PROTEIN,URINE 100 mg/dl (Neg); UROBILINOGEN,URINE 0.2 E.U/dL (0.2-1.0)
[2019-12-31 09:03] LABS: ALANINE AMINOTRANSFERASE 21 U/L (12-78); ALBUMIN 3.8 G/DL (3.4-5.0); ALKALINE PHOSPHATASE 79 IU/L (46-116); ANION GAP 12 (8-16); ASPARTATE AMINO TRANSFERASE 15 U/L (10-37); BILIRUBIN,TOTAL 0.2 MG/DL (0.1-1.0); BLOOD UREA NITROGEN 44 MG/DL (7-18); BUN/CREATININE RATIO 27.7 (5.4-32.0); CHLORIDE 106 MMOL/L (99-107); CREATININE 1.59 MG/DL (0.60-1.10); GLUCOSE 254 MG/DL (70-104); LIPASE 158 U/L (73-393); POTASSIUM 4.6 MMOL/L (3.5-5.1); SODIUM 141 MMOL/L (135-145); TOTAL CARBON DIOXIDE 23.2 MMOL/L (24-32); TOTAL PROTEIN 7.8 G/DL (6.4-8.2); eGFR 44 ML/MIN
[2019-12-31 09:06] LABS: UA COLLECTION TYPE FOLEY CATH
[2019-12-31 09:09] LABS: BACTERIA,URINE 3+ /HPF (Neg); MUCUS STRANDS NONE SEEN /LPF (Neg); RBC,URINE 50-100 /HPF (0-2); SQUAMOUS EPITHELIAL CELL,UR NONE SEEN /LPF (FEW); TRANSITIONAL EPI CELLS,URINE FEW /HPF; WBC CLUMPS,URINE FEW /HPF (NEGATIVE); WBC,URINE 30-50 /HPF (0-4)
[2019-12-31] MEDS ORDERED: CefTRIAXone 2gm/D5W 50ml 50 ML IV ONE (10:35)
[2019-12-31] MEDS ORDERED: LORazepam 2 mg/ml vial IV ONE (10:35)
[2019-12-31] MEDS ORDERED: NITR100C6 PO (11:38)
[2019-12-31] MEDS ORDERED: HYDR-4353 PO (11:38)
[2019-12-31] MEDS ORDERED: B030R RC (11:43)
[2019-12-31] MEDS ORDERED: CIPR-230 PO (11:43)
[2019-12-31 11:52] VITALS: BP 119/78
== END 2019-12-31 11:50 | disposition home or self-care (01) ==
LOC: ER 08:18
DX: N39.0 Urinary tract infection, site not specified (principal); I10 Essential (primary) hypertension; E11.9 Type 2 diabetes mellitus without complications; G89.29 Other chronic pain; F41.9 Anxiety disorder, unspecified; F32.9 Major depressive disorder, single episode, unspecified; F12.90 Cannabis use, unspecified, uncomplicated; Z98.890 Other specified postprocedural states; Z79.899 Other long term (current) drug therapy
CPT/HCPCS: 80053; 81001; 83690; 85025; 87077; 87088; 87186; 96365; 96375; 99284; J0696; J2060

== ENCOUNTER 2020-01-05 13:35 | Emergency (ER) | payer MEDICARE ==
[~2020-01-05] VITALS: Ht 177.8 cm; Wt 107.0 kg
[~2020-01-05 13:35] MED LIST changes: +B030R RC; +CIPR-230 PO
[2020-01-05] MEDS ORDERED: LORazepam 1 MG tablet PO ONE (14:05)
[2020-01-05] MEDS ORDERED: LORazepam 2 mg/ml vial IV ONE (14:20)
[2020-01-05 14:35] LABS: BASOPHILS # (AUTO) 0.1 X10'3 (0-0.2); BASOPHILS % (AUTO) 0.5 % (0-1); EOSINOPHILS # (AUTO) 0.2 X10'3 (0-0.9); EOSINOPHILS % (AUTO) 1.4 % (0-6); HEMATOCRIT 38.6 % (42.0-52.0); HEMOGLOBIN 12.6 g/dl (14.0-17.9); LYMPHOCYTES # (AUTO) 1.9 X10'3 (1.1-4.8); LYMPHOCYTES % (AUTO) 13.3 % (21-51); MEAN CORPUSCULAR HEMOGLOBIN 31.2 PG (27.0-31.0); MEAN CORPUSCULAR HGB CONC 32.8 g/dL (33.0-36.5); MEAN CORPUSCULAR VOLUME 95.1 FL (78-98); MEAN PLATELET VOLUME 8.9 FL (7.4-10.4); MONOCYTES # (AUTO) 1.1 X10'3 (0-0.9); MONOCYTES % (AUTO) 7.3 % (2-12); NEUTROPHILS # (AUTO) 11.1 X10'3 (1.8-7.7); NEUTROPHILS % (AUTO) 77.5 % (42-75); PLATELET COUNT 265 X10'3 (140-440); RED BLOOD COUNT 4.06 X10'6 (4.70-6.10); RED CELL DISTRIBUTION WIDTH 13.1 % (11.5-14.5); WHITE BLOOD COUNT 14.4 X10'3 (4.5-11.0)
[2020-01-05 14:47] LABS: PARTIAL THROMBOPLASTIN TIME 30 SECONDS (22-32)
[2020-01-05 14:52] LABS: ALANINE AMINOTRANSFERASE 39 U/L (12-78); ALBUMIN 3.5 G/DL (3.4-5.0); ALBUMIN/GLOBULIN RATIO 0.8 (1.1-1.5); ALKALINE PHOSPHATASE 70 IU/L (46-116); ANION GAP 12 (8-16); ASPARTATE AMINO TRANSFERASE 20 U/L (10-37); BILIRUBIN,TOTAL 0.3 MG/DL (0.1-1.0); BLOOD UREA NITROGEN 49 MG/DL (7-18); BUN/CREATININE RATIO 29.2 (5.4-32.0); CHLORIDE 107 MMOL/L (99-107); CREATININE 1.68 MG/DL (0.60-1.10); GLUCOSE 237 MG/DL (70-104); POTASSIUM 4.3 MMOL/L (3.5-5.1); SODIUM 140 MMOL/L (135-145); TOTAL CARBON DIOXIDE 20.7 MMOL/L (24-32); TOTAL PROTEIN 7.8 G/DL (6.4-8.2); eGFR 42 ML/MIN
[2020-01-05] MEDS ORDERED: normal saline 1000ml 1,000 ML IV ONE ×3 (15:30→17:50)
[2020-01-05] MEDS ORDERED: ziprasidone IM 20mg inj **IM only IM ONE (16:00)
[2020-01-05 16:17] LABS: CLARITY,URINE CLOUDY (Clear); GLUCOSE, URINE 250 mg/dl (Neg); KETONES,URINE NEGATIVE (Neg); LEUKOCYTE ESTERASE ,URINE NEGATIVE (Neg); NITRITES, URINE NEGATIVE (Neg); OCCULT BLOOD,URINE LARGE (Neg); PROTEIN,URINE 30 mg/dl (Neg); UROBILINOGEN,URINE 0.2 E.U/dL (0.2-1.0)
[2020-01-05 16:27] LABS: UA COLLECTION TYPE STRAIGHT CATH
[2020-01-05 16:28] LABS: COLOR,URINE DARK YELLOW (Yellow)
[2020-01-05 16:30] LABS: RBC,URINE TNTC /HPF (0-2)
[2020-01-05 16:31] LABS: AMORPHOUS URATES 1+; BACTERIA,URINE FEW /HPF (Neg); SQUAMOUS EPITHELIAL CELL,UR FEW /LPF (FEW); TRANSITIONAL EPI CELLS,URINE FEW /HPF
[2020-01-05 16:32] LABS: FINE GRANULAR CAST 0-3 /LPF (NEGATIVE)
[2020-01-05] MEDS ORDERED: CefTRIAXone 2gm/D5W 50ml 50 ML IV ONE (17:20)
--- NOTE | 2020-01-05 19:19 | NUR ---
pt is crying and anxious. FRANCIS Gauthier made aware. Per , pt has a history of anxiety.
[2020-01-05 19:50] VITALS: BP 141/123
== END 2020-01-05 19:49 | disposition home or self-care (01) ==
LOC: ER 13:36
DX: F41.9 Anxiety disorder, unspecified (principal); E11.65 Type 2 diabetes mellitus with hyperglycemia; N39.0 Urinary tract infection, site not specified; I10 Essential (primary) hypertension; G89.29 Other chronic pain; F32.9 Major depressive disorder, single episode, unspecified; F12.90 Cannabis use, unspecified, uncomplicated; R10.30 Lower abdominal pain, unspecified; Z79.899 Other long term (current) drug therapy
CPT/HCPCS: 36415; 71045; 80053; 81001; 82948; 83605; 84145; 84484; 85025; 85610; 85730; 87040; 87088; 93005; 96361; 96365; 96372; 96375; 99285; J0696; J2060; J3486; J7030; 96366

== ENCOUNTER 2020-01-09 07:15 | Emergency (ER) | payer MEDICARE ==
[~2020-01-09] VITALS: Ht 208.3 cm; Wt 250.0 kg
[2020-01-09] MEDS ORDERED: LIDOcaine 2% 10ml TOPICAL JELLY (Urojet) TP ONE (07:30)
[2020-01-09] MEDS ORDERED: LORazepam 1 MG tablet PO ONE (07:45)
[2020-01-09 08:11] LABS: CLARITY,URINE SLIGHTLY CLOUDY (Clear); COLOR,URINE YELLOW (Yellow); GLUCOSE, URINE >=1000 mg/dl (Neg); KETONES,URINE NEGATIVE (Neg); LEUKOCYTE ESTERASE ,URINE NEGATIVE (Neg); NITRITES, URINE NEGATIVE (Neg); OCCULT BLOOD,URINE MODERATE (Neg); PROTEIN,URINE TRACE mg/dl (Neg); UROBILINOGEN,URINE 0.2 E.U/dL (0.2-1.0)
[2020-01-09 08:12] LABS: UA COLLECTION TYPE FOLEY CATH
[2020-01-09 08:17] LABS: HYALINE CASTS 0-3 /LPF (NEGATIVE); MUCUS STRANDS FEW /LPF (Neg); SQUAMOUS EPITHELIAL CELL,UR FEW /LPF (FEW)
[2020-01-09 08:18] LABS: BACTERIA,URINE FEW /HPF (Neg); RBC,URINE 0-2 /HPF (0-2); WBC,URINE 0-4 /HPF (0-4)
[2020-01-09 08:19] LABS: AMORPHOUS URATES 2+
[2020-01-09 08:50] VITALS: BP 153/87
== END 2020-01-09 08:56 | disposition home or self-care (01) ==
LOC: ER 07:16
DX: R33.9 Retention of urine, unspecified (principal); I10 Essential (primary) hypertension; E11.9 Type 2 diabetes mellitus without complications; F41.9 Anxiety disorder, unspecified; F32.9 Major depressive disorder, single episode, unspecified; F12.90 Cannabis use, unspecified, uncomplicated; R39.15 Urgency of urination; Z79.899 Other long term (current) drug therapy
CPT/HCPCS: 51702; 81001; 99284

== ENCOUNTER 2020-01-10 08:36 | Emergency (ER) | payer MEDICARE ==
[~2020-01-10] VITALS: Ht 177.8 cm; Wt 107.3 kg
[2020-01-10] MEDS ORDERED: normal saline 1000ML IV soln IVB ONE (09:15)
[2020-01-10] MEDS ORDERED: LORazepam 2 mg/ml vial IV ONE (09:15)
[2020-01-10] MEDS ORDERED: metoclopramide 5 mg/ml inj IV ONE (09:15)
[2020-01-10 10:06] LABS: BASOPHILS # (AUTO) 0.1 X10'3 (0-0.2); BASOPHILS % (AUTO) 0.5 % (0-1); EOSINOPHILS # (AUTO) 0.2 X10'3 (0-0.9); EOSINOPHILS % (AUTO) 1.7 % (0-6); HEMATOCRIT 37.9 % (42.0-52.0); HEMOGLOBIN 12.8 g/dl (14.0-17.9); LYMPHOCYTES # (AUTO) 1.9 X10'3 (1.1-4.8); LYMPHOCYTES % (AUTO) 15.4 % (21-51); MEAN CORPUSCULAR HGB CONC 33.8 g/dL (33.0-36.5); MEAN CORPUSCULAR VOLUME 94.6 FL (78-98); MONOCYTES # (AUTO) 0.8 X10'3 (0-0.9); MONOCYTES % (AUTO) 6.6 % (2-12); NEUTROPHILS # (AUTO) 9.3 X10'3 (1.8-7.7); NEUTROPHILS % (AUTO) 75.8 % (42-75); PLATELET COUNT 290 X10'3 (140-440); RED CELL DISTRIBUTION WIDTH 13.1 % (11.5-14.5); WHITE BLOOD COUNT 12.3 X10'3 (4.5-11.0)
--- NOTE | 2020-01-10 10:08 | NUR ---
Patient is resting comfortably in bed with his at the bedside.
[2020-01-10 10:34] LABS: ALANINE AMINOTRANSFERASE 46 U/L (12-78); ALBUMIN 3.5 G/DL (3.4-5.0); ALBUMIN/GLOBULIN RATIO 0.9 (1.1-1.5); ALKALINE PHOSPHATASE 74 IU/L (46-116); ANION GAP 11 (8-16); ASPARTATE AMINO TRANSFERASE 21 U/L (10-37); BILIRUBIN,TOTAL 0.2 MG/DL (0.1-1.0); BLOOD UREA NITROGEN 50 MG/DL (7-18); BUN/CREATININE RATIO 29.2 (5.4-32.0); CALCIUM 9.1 MG/DL (8.5-10.1); CHLORIDE 104 MMOL/L (99-107); CREATININE 1.71 MG/DL (0.60-1.10); GLUCOSE 242 MG/DL (70-104); POTASSIUM 4.3 MMOL/L (3.5-5.1); SODIUM 137 MMOL/L (135-145); TOTAL CARBON DIOXIDE 21.7 MMOL/L (24-32); TOTAL PROTEIN 7.4 G/DL (6.4-8.2); eGFR 41 ML/MIN
[2020-01-10 11:49] VITALS: BP 133/69
== END 2020-01-10 11:51 | disposition home or self-care (01) ==
LOC: ER 08:37
DX: F41.0 Panic disorder [episodic paroxysmal anxiety] (principal); I12.9 Hypertensive chronic kidney disease with stage 1 through stage 4 chronic kidney disease, or unspecified chronic kidney disease; E11.22 Type 2 diabetes mellitus with diabetic chronic kidney disease; N18.9 Chronic kidney disease, unspecified; F32.9 Major depressive disorder, single episode, unspecified; Z98.890 Other specified postprocedural states; F12.90 Cannabis use, unspecified, uncomplicated; F41.9 Anxiety disorder, unspecified; Z79.899 Other long term (current) drug therapy; Z79.84 Long term (current) use of oral hypoglycemic drugs
CPT/HCPCS: 36415; 80053; 85025; 96361; 96374; 96375; 99285; J2060; J2765; J7030

== ENCOUNTER 2020-01-16 09:48 | Emergency (ER) | payer MEDICARE ==
[~2020-01-16] VITALS: Ht 177.8 cm; Wt 104.5 kg
[2020-01-16] MEDS ORDERED: LORazepam 2 mg/ml vial IM ONE (09:55)
[2020-01-16 10:28] VITALS: BP 150/95
[2020-01-16] MEDS ORDERED: METF500T PO (11:05)
== END 2020-01-16 11:19 | disposition home or self-care (01) ==
LOC: ER 09:48
DX: F41.9 Anxiety disorder, unspecified (principal); E11.65 Type 2 diabetes mellitus with hyperglycemia; I10 Essential (primary) hypertension; G89.29 Other chronic pain; F32.9 Major depressive disorder, single episode, unspecified; F12.90 Cannabis use, unspecified, uncomplicated; Z90.89 Acquired absence of other organs; Z79.899 Other long term (current) drug therapy
CPT/HCPCS: 82948; 96372; 99283; J2060